=== PATIENT | male | born 1975 | race Caucasian/White ===

== ENCOUNTER 2018-04-07 12:55 | Emergency (ER) | payer MEDICARE, MEDICAID, SELFPAY ==
[2018-04-07 12:56] VITALS: BP 116/80; PULSE 101; RESP 16; TEMP 36.9; O2SAT 97; BMI 20.2
--- NOTE | 2018-04-07 13:46 | ED.DCSUM_ITS ---
- ER Visit Summary Date of Service: 04/07/18 Chief Complaint: Box with being spelled striking patient on the nose History of Present Illness: The patient is a 42 M who presents because of blunt injury to the nose. Parents state he complained the pain so they brought him here. He does have MRDD. There is no loss conscious. There is been no vomiting. He has no change in vision other than his blurry since his glasses broke. He has no difficulty breathing from his nose. There is no reported history of epistaxis. He has had no double vision or loss of vision. He presently has no complaints. Please read written note for complete detail Physical Examination: There is no swelling of the nose. There may be a small area of discoloration. There is no septal deviation hematoma. Pupils equal round reactive paradoxic muscle intact. There is no step-off with palpation infraorbital rim. Is no hyperesthesia and formal nerve. There is no evidence of entrapment. There is no subconjunctival hemorrhage noted. There is no loose dentition. He is able to open and close his mouth completely. Test Results: Parents were informed since there is no evidence of visible trauma and no deformity radiologic imaging is not indicated. Emergency Department Course and Treatment: Evaluation of blunt trauma in cognitively impaired person. Treatment Plan: Appropriate home-going instructions Disposition: discharge to home with parents Impression: Contusion nose secondary to blunt trauma initial encounter This note was generated with [employer] dictation software. It may contain incorrect words, spelling, and punctuation that were not noted in review of the chart prior to signing ED Disposition - Plan for ED Patient: Disposition: Home or Assisted Living Chief Complaint: Other, Pain/Inj Instructions: ED Contusion Nasal Referrals: Nicholas Collins MD [Primary Care Provider] - 1 Week if not improving
[2018-04-07 13:58] VITALS: PULSE 98; RESP 14; O2SAT 99
== END 2018-04-07 13:58 | disposition home or self-care (01) ==
LOC: ED 13:55
PROVIDERS: Emergency Provider Emergency Medicine; Family Provider Family Medicine; PCP Family Medicine
DX: S00.33XA Contusion of nose, initial encounter (principal); W22.8XXA Striking against or struck by other objects, initial encounter; Y93.9 Activity, unspecified; Y92.9 Unspecified place or not applicable; Y99.9 Unspecified external cause status; F79 Unspecified intellectual disabilities; J45.909 Unspecified asthma, uncomplicated
CPT/HCPCS: 99282

== ENCOUNTER 2018-09-22 04:20 | Emergency (ER) | payer MEDICARE, MEDICAID, SELFPAY ==
[2018-09-22 04:21] VITALS: BP 139/78; PULSE 95; RESP 24; TEMP 36.8; O2SAT 97; BMI 18.8
--- NOTE | 2018-09-22 04:33 | CT_ITS ---
STUDY: CT BRAIN WITHOUT CONTRAST REASON FOR EXAM: Male, 42 years old. Dizziness. RADIATION DOSAGE (If Supplied By Facility): CTDIvol = ( 44.99 ) mGy, DLP = ( 829.85 ) mGycm TECHNIQUE: Transaxial CT imaging of the brain was performed without administration of intravenous contrast material. Individualized dose optimization techniques were used for this CT. COMPARISON: None. FINDINGS: There is small left frontal subcutaneous hematoma. Normal calvarium. Normal size ventricles and extra-axial spaces for the patient's age. Normal white matter tracts of the cerebral hemispheres. Normal basal ganglia and thalami. Normal brainstem. Normal cerebellum. There is no intracranial hemorrhage. There are no findings of an acute ischemic infarction. Normal visualized paranasal sinuses. CT/Brain/Head without Contrast IMPRESSION: No intracranial hemorrhage. Electronically Signed: Luz Sy MD at 5:49 EDT Tel , Service support ,
--- NOTE | 2018-09-22 04:34 | RAD_ITS ---
STUDY: X-RAY CHEST REASON FOR EXAM: Male, 42 years old. Syncope TECHNIQUE: Frontal and lateral views of the chest. COMPARISON: None. FINDINGS: The lungs are clear and expanded. There is no demonstrated pleural abnormality. Normal size heart. Normal mediastinum and nicolle. Normal visualized pulmonary arteries. Normal visualized aortic arch and descending thoracic aorta. Normal visualized thoracic spine. Normal visualized ribs, clavicles, and shoulders. There is no demonstrated abnormality of the visualized soft tissue structures of the upper abdomen. RAD/Chest PA and Lateral IMPRESSION: Normal x-ray examination of the chest. Electronically Signed: Luz Sy MD at 5:15 EDT Tel , Service support ,
--- NOTE | 2018-09-22 04:34 | EKG12_ITS ---
Test Reason : DIZZINESS Blood Pressure : / mmHG Vent. Rate : 093 BPM Atrial Rate : 093 BPM P-R Int : 148 ms QRS Dur : 086 ms QT Int : 334 ms P-R-T Axes : 057 098 035 degrees QTc Int : 415 ms Normal sinus rhythm Right atrial enlargement Abnormal ECG Confirmed by CHEYANNE GREEN, SONY ([id number]), commissioning editor SHEILA RUBIN ([id number] on 09/24/2018 1:15:39 PM Referred By: HU Confirmed By:SONY EDWARD MD
[2018-09-22] MEDS: 0.9% Normal Saline 1,000 ML 1000 ML IV (04:43)
[2018-09-22 04:44] VITALS: BP 124/72; BP 129/76; BP 141/73; PULSE 105; PULSE 115; PULSE 98
[2018-09-22 04:57] LABS: Absolute Lymphocyte Count 0.39 X10^3/ul (0.83-4.51); Absolute Neutrophil Count 10.6 X10^3/uL (2.0-7.7); Basophil# 0.02 X10^3/uL; Basophil% 0.2 % (0-1); Eosinophil# 0.95 X10^3/uL; Eosinophils% 7.6 % (0-5); Hematocrit 43.4 % (40-54); Hemoglobin 15.1 g/dl (13.0-16.5); Lymphocyte # 0.39 X10^3/ul (4.0); Lymphocyte % 3.1 % (19-41); Mean Corp Hgb Conc 34.8 g/gl (32-36); Mean Corpuscular Hgb 29.6 pg (27.0-32.0); Mean Corpuscular Volume 85.1 fL (80-94); Mean Platelet Vol. 10.1 fl (6.2-12.0); Monocyte# 0.57 X10^3/uL; Monocyte% 4.5 % (0-10); Neutrophil # 10.59 X10^3/uL (2.7-7.7); Neutrophil % 84.3 % (47-70); Platelet Count 220 K/mm3 (150-450); RBC Distribution Width CV 13.1 % (11.6-14.6); RBC Distribution Width SD 40.3 fl (35.1-43.9); White Blood Count 12.6 K/mm3 (4.4-11.0)
[2018-09-22 04:59] LABS: Differential Indicated SCAN CRITERIA MET; POSITIVE COUNT NO; POSITIVE DIFFERENTIAL YES; POSITIVE MORPHOLOGY NO
[2018-09-22 05:08] LABS: Anion Gap 9 (5-15); BUN 12 mg/dL (7-18); BUN/Creat Ratio 14.3 RATIO (10-20); Calcium,Total 8.6 mg/dL (8.5-10.1); Chloride 105 mmol/L (98-107); Creatinine, Serum 0.84 mg/dL (0.70-1.30); EST Glomerular Filtration Rate 106 mL/min (>60); Est Glom Filt Rate - Afr Amer 129 mL/min (>60); Estimated Creatinine Clearance 100.01 ml/min; Glucose 136 mg/dL (74-106); Potassium 3.5 mmol/L (3.5-5.1); Sodium Level 142 mmol/L (136-145)
[2018-09-22 05:21] LABS: Differential Comment SCANNED
--- NOTE | 2018-09-22 05:26 | ED.DEP ---
ED Disposition - Plan for ED Patient: Chief Complaint: Dizziness Instructions: ED Fainting Unkn Cause Referrals: Nicholas Collins MD [Primary Care Provider] -
--- NOTE | 2018-09-22 05:55 | ED.VISSUMM ---
- ER Visit Summary Date of Service: 09/22/18 Chief Complaint: Syncope History of Present Illness: The patient is a 42 M who presents after a syncopal episode. He had gotten up and felt dizzy. He then lost consciousness and fell forward. Family heard a thump shortly before presentation here to the emergency department. He complains of some aching in the bilateral legs. He also complains of a headache. He denies any recent illness. No fever chest pain shortness of breath nausea vomiting diarrhea abdominal pain. He denies any other injuries. Physical Examination: Afebrile respiratory rate 24 vitals otherwise normal Neck nontender Atraumatic normocephalic she had any lacerations contusions abrasions or hematomas GCS of 18 with no focal or lateralizing neurological deficits Heart is regular rate and rhythm Lungs are clear Abdomen soft Active full range of motion x4 extremities, nontender Test Results: EKG shows sinus rhythm at a rate of 93. Orthostatic vital signs are negative. Labs are notable for white blood cell count 12.6. Troponin negative. Chest x-ray is normal. CT the head shows no intracranial hemorrhage. Emergency Department Course and Treatment: Patient was treated with IV fluids. He is resting comfortably no distress. He will be discharged to follow-up as an outpatient. Family understands to return for new or worsening symptoms and were instructed on specific signs and symptoms to monitor for. Treatment Plan: [] Disposition: Discharge Impression: Syncope Closed head injury This note was generated with [employer] dictation software. It may contain incorrect words, spelling, and punctuation that were not noted in review of the chart prior to signing ED Disposition - Plan for ED Patient: Chief Complaint: Dizziness Instructions: ED Fainting Unkn Cause Referrals: Nicholas Collins MD [Primary Care Provider] -
[2018-09-22 06:03] VITALS: BP 129/65; PULSE 102; RESP 18; O2SAT 99
== END 2018-09-22 06:04 | disposition home or self-care (01) ==
LOC: ED 04:50
PROVIDERS: Emergency Provider Emergency Medicine; Family Provider Family Medicine; PCP Family Medicine
DX: R55 Syncope and collapse (principal); S09.90XA Unspecified injury of head, initial encounter; X58.XXXA Exposure to other specified factors, initial encounter; Y93.9 Activity, unspecified; Y92.9 Unspecified place or not applicable; Y99.9 Unspecified external cause status; Q85.00 Neurofibromatosis, unspecified
CPT/HCPCS: 70450; 71046; 80048; 84484; 85025; 93005; 96360; 99285; J7030; A4216

== ENCOUNTER → 2018-10-18 06:37 | Outpatient (CLI) | payer MEDICARE, MEDICAID, SELFPAY ==
--- NOTE | 2018-10-19 13:08 | EEG ---
- Electroencephalogram Date of service 10/18/2018 History EEG is being done in this 43 yr M to rule out seizures EEG Description: This is an 18 channel EEG with 10-20 lead placement system. Bipolar montages, Referential and Circumferential montages were reviewed. Photic stimulation and Hyperventilation were performed. The posterior dominant rhythm is 7 HZ synchronous, symmetric, reacting to eye opening and closing. Photo stimulation elicited normal driving response but no abnormal photoparoxysmal response, Hyperventilation did not elicit any abnormal photoparoxysmal response. Sleep was identified. There is mild abnormal background slowing in the theta frequency range noted during the record. There was no epileptiform discharges or electrographic seizures noted during this recording. Muscle artefact identified throughout the record EEG Interpretation This is an abnormal EEG due to the presence of mild generalized slowing. This may be seen in generalized cerebral dysfunction like metabolic/toxic encephalopathy. Clinical correlation is advised. There is no epileptiform discharges or electrographic seizures noted during the record.
== END ==
PROVIDERS: Family Provider Family Medicine; PCP Family Medicine; Referring Provider Family Medicine; Visit Provider Family Medicine
DX: R55 Syncope and collapse (principal); Q85.00 Neurofibromatosis, unspecified

== ENCOUNTER 2018-10-19 18:09 | Observation (INO) | payer MEDICARE, MEDICAID, SELFPAY ==
[2018-10-19 18:10] VITALS: BP 143/78; PULSE 75; RESP 18; TEMP 36.7; O2SAT 99; BMI 19.1
[2018-10-19 20:02] VITALS: BP 133/85; PULSE 65; RESP 17; O2SAT 99
--- NOTE | 2018-10-19 20:50 | RAD_ITS ---
STUDY: X-RAY - ABDOMEN/PELVIS REASON FOR EXAM: Male, 43 years old. Constipation. Blood in stool. TECHNIQUE: KUB. COMPARISON: None. FINDINGS: There is a nonobstructive bowel gas pattern. There is a large stool burden. No organomegaly. No abnormal calcifications. Normal soft tissue structures. Normal visualized osseous structures. RAD/Abdomen Single View IMPRESSION: Large stool burden consistent with constipation. Otherwise unremarkable study. Electronically Signed: Idania Senior MD at 21:15 EST Tel , Service support ,
[2018-10-19 21:56] LABS: Absolute Lymphocyte Count 1.41 X10^3/ul (0.83-4.51); Absolute Neutrophil Count 3.9 X10^3/uL (2.0-7.7); Basophil# 0.05 X10^3/uL; Basophil% 0.8 % (0-1); Eosinophil# 0.32 X10^3/uL; Hematocrit 41.4 % (40-54); Hemoglobin 13.7 g/dl (13.0-16.5); Lymphocyte # 1.41 X10^3/ul (4.0); Mean Corp Hgb Conc 33.1 g/gl (32-36); Mean Corpuscular Volume 87.5 fL (80-94); Mean Platelet Vol. 10.1 fl (6.2-12.0); Monocyte# 0.74 X10^3/uL; Monocyte% 11.5 % (0-10); Neutrophil # 3.88 X10^3/uL (2.7-7.7); Neutrophil % 60.5 % (47-70); Platelet Count 224 K/mm3 (150-450); RBC Distribution Width CV 13.1 % (11.6-14.6); Red Blood Count 4.73 M/mm3 (4.6-6.2); White Blood Count 6.4 K/mm3 (4.4-11.0)
[2018-10-19 22:03] LABS: POSITIVE COUNT NO; POSITIVE DIFFERENTIAL NO; POSITIVE MORPHOLOGY NO
[2018-10-19 22:07] LABS: Anion Gap 3 (5-15); BUN 17 mg/dL (7-18); Calcium,Total 8.9 mg/dL (8.5-10.1); Chloride 104 mmol/L (98-107); Creatinine, Serum 0.77 mg/dL (0.70-1.30); EST Glomerular Filtration Rate 117 mL/min (>60); Est Glom Filt Rate - Afr Amer 142 mL/min (>60); Glucose 105 mg/dL (74-106); Sodium Level 139 mmol/L (136-145)
[2018-10-19 22:21] LABS: International Normalized Ratio 1.1; Prothrombin Time (Protime)PT. 13.7 SECONDS (11.7-14.9)
[2018-10-19 22:24] VITALS: BP 127/80; PULSE 75; RESP 18; O2SAT 97
--- NOTE | 2018-10-19 23:42 | HP.PCM_ITS ---
Problem List (1) GI bleed Status: Acute Qualifiers: GI bleed type/associated pathology: unspecified gastrointestinal hemorrhage type Qualified Code(s): K92.2 - Gastrointestinal hemorrhage, unspecified (2) Constipation Status: Acute Qualifiers: Constipation type: unspecified constipation type Qualified Code(s): K59.00 - Constipation, unspecified (3) MRDD Status: Chronic (4) Neurofibromatosis Status: Chronic (5) Asthma Status: Chronic Qualifiers: Asthma severity: unspecified severity Asthma persistence: unspecified Asthma complication type: unspecified Qualified Code(s): J45.909 - Unspecified asthma, uncomplicated History of Present Illness Date of Admission: 10/19/18 Chief Complaint: Constipation x 3 days, dark red blood onset on day of presentation. The patient is a 43 y/o M w/ PMHx: Asthma, Neurofibromatosis Unclear Type, MRDD who presents to the [facility] ED on 10/19/18 with history of onset constipation without marked abdominal discomfort, distention x 3 days with onset dark red blood on the evening of ED presentation with small bowel movement attempts. In the ED patient administered enema and was noted to have BM x 3 while in the ED and eventually had liquid dark red blood noted to be a considerable amount. In the ED work-up included T 98, heart rate 75, BP 127/80, respiratory rate 18, 99% on room air, CBC with WBC 6.4, hemoglobin 13.7, platelet 224 without market shift, unremarkable coags, BMP unremarkable, KUB with large stool burden consistent with constipation otherwise unremarkable. Past Medical History Past Medical History (Chronic Problems): Chronic Problems MRDD (Chronic) Neurofibromatosis (Chronic) Asthma (Chronic) Allergies No Known Allergies Allergy (Verified 10/19/18 18:11) Home Medications: Ambulatory Orders Medication Instructions Recorded Albuterol Inhaler [Ventolin Hfa] 1 - 2 puff INHALATION Q4H PRN PRN 06/21/14 Albuterol Aerosols [Ventolin 2.5 mg INHALATION Q6H PRN PRN 10/19/18 Aerosols] Fluticasone 0.05% [Flonase Nasal 2 spray NASAL DAILY 10/19/18 [place]] Fluticasone 44 Mcg [Flovent (SP)] 2 puff INHALATION BID 10/19/18 Olopatadine HCl [Patanol] 2 drop EACH EYE DAILY 10/19/18 Surgical History: - - Patient has had skin tumor resections. Psychiatric History: No pertinent psych hx Lives: With Family - Patient lives with his mother and father. Smoking Status: Never smoker Alcohol: None Drugs: None - *Family History Maternal History Items: - - Patient with maternal and paternal family history of heart disease, hypertension, diabetes and cancer. Paternal History Items: - - Patient with maternal and paternal family history of heart disease, hypertension, diabetes and cancer. Review of Systems Constitutional: Denies: Chills, Fever, Weight Change HEENT: Denies: Head Aches, Sinus Congestion, Sinus Drainage Cardiovascular: Denies: Chest Pain, Palpitations Respiratory: Denies: Cough, Shortness of breath at rest, Sputum production Gastrointestinal: Reports: Constipation, - - Dark red liquid blood.. Denies: A bdominal Pain, Nausea, Vomiting Genitourinary: Denies: Dysuria Musculoskeletal: Denies: Joint Pain, Joint Tenderness Skin: Reports: Skin Changes. Denies: Rash, Wounds Neurological: Denies: Numbness, Tingling, Focal weakness Psychiatric: Denies: Anxiety, Depression, Homicidal Ideations, Suicidal Ideations Hematologic/ Lymphatic: Denies: Easy Bruising, Easy Bleeding VTE Information - Inpt Only VTE Present on Admission: No VTE Mechan Device Prophylaxis: SCD's VTE Pharm Prophylaxis ordered?: No Reason prophylaxis not ordered:: Medical Contraindication Patient Problems: Active and Suspected Problems GI bleed (Acute) Constipation (Acute) Subjective: Seated upright in ED bed, no acute distress. Objective: Physical Examination: General: awake, alert, oriented x 3 and cooperative, seated upright in the ED bed in no apparent distress. Skin: normal color, turgor, no icterus, cyanosis, evidence neurofibromatosis lesions to the bilateral upper extremities primarily. HEENT: AT/NC, EOMI, PERRLA, MMM, no carotid bruits or JVD noted. Lungs: CTA bilaterally, moderate effort, mild decrease BL bases, no rales, ronchi or wheezing. Heart: Regular rate and rhythm; no gallop, rub audible. Abdomen: soft, thin habitus, NTTP, ND, decreased BS, no HSM. Extremities: no cyanosis, clubbing, or edema. Neurological: patient awake, alert, oriented x 3; cognitive function intact; pupils equally reactive to light and accomodation; cranial nerves II-XII grossly normal, moving all 4 extremities, no focal deficits, strength preserved. Psychiatric: affect appears normal, no acute evidence of depressive or anxiety feelings. - Physical Exam Vital Signs Temp Pulse Resp BP Pulse Ox 98.0 F 75 18 127/80 H 97 10/19/18 18:10 10/19/18 22:24 10/19/18 22:24 10/19/18 22:24 10/19/18 22:24 Oxygen Delivery Method Room Air Weight: 136 lb 10.986 oz Body Mass Index (BMI) 19.1 Laboratory Tests Past 24 Hrs 10/19/18 10/19/18 10/19/18 21:45 21:45 21:45 WBC 6.4 RBC 4.73 Hgb 13.7 Hct 41.4 MCV 87.5 MCH 29.0 MCHC 33.1 RDW 13.1 RDW Differential 42.0 Plt Count 224 MPV 10.1 Immature Gran % (Auto) 0.200 Neut % (Auto) 60.5 Lymph % (Auto) 22.0 [place] % (Auto) 11.5 H Eos % (Auto) 5.0 Baso % (Auto) 0.8 Absolute Neuts (auto) 3.9 Absolute Lymphs (auto) 1.41 Total Counted Not Reportable PT 13.7 INR 1.1 APTT 30.0 Sodium 139 Potassium 4.0 Chloride 104 Carbon Dioxide 32.0 Anion Gap 3 L BUN 17 Creatinine 0.77 Estim Creat Clear Calc 109.60 Est GFR (MDRD) Af Amer 142 Est GFR (MDRD) Non-Af 117 BUN/Creatinine Ratio 22.0 H Glucose 105 Calcium 8.9 Assessment/Plan All Active Problems GI bleed (Acute) Constipation (Acute) The patient is a 43 y/o M w/ PMHx: Asthma, Neurofibromatosis Unclear Type, MRDD who presents to the [facility] ED on 10/19/18 with history of onset constipation without marked abdominal discomfort, distention x 3 days with onset dark red blood on the evening of ED presentation with small bowel movement attempts. (1) Acute Constipation w/ ? Associated GI Bleed, possible Diverticular versus Hemorrhoidal, Unclear Specific Etiology: Admission Hgb 13.7, notable liquid blood output dark red appearance after enema--->BM x 3, will admit to [facility], maintain on IVFs, obtain serial H+H q 6 hours, maintain on IV PPI. Dr. Young consulted, pending. Lactulose x 1 administered in addition to noted enema. Allow clears until Surgery evaluation. (2) Chronic Asthma: ATC duonebs, PRN albuterol, HOB, IS parameters. (3) Neurofibromatosis: Unclear Type, parents noted lesion removal from scalp prior. (4) MRDD: Mild to moderate, lives with his parents, does have a job at [employer] he notes. (5) DVT prophylaxis: SCDs, defer chemoprophylaxis given acute presentation #1. Code Visit OBSV E&M: [id number] Initial observation care L3
--- NOTE | 2018-10-20 00:03 | ED.VISSUMM ---
- ER Visit Summary Date of Service: 10/20/18 Chief Complaint: Constipation History of Present Illness: The patient is a 43 M presenting with constipation. He states this started 3 days ago. He has been unable to have bowel movement. He has tried stool softener without improvement. Today he noticed blood per rectum without stool. He denies abdominal pain. Denies nausea vomiting. Denies other complaints. Physical Examination: Vitals are stable. Patient is afebrile. Alert no acute distress. HEENT exam is unremarkable. Neck is supple. Lungs are clear and equal bilaterally. Heart is regular rate and rhythm. Abdomen is soft nontender nondistended. No guarding or rebound Rectal: no impaction Extremities are unremarkable. Skin is warm and dry. Remainder of exam is unremarkable. Emergency Department Course and Treatment: KUB shows large stool burden consistent with constipation. He is given a soapsuds enema. He was able to have a bowel movement. This was followed by a large amount of blood. CBC, chemistries unremarkable. Due to GI bleed, discussed with hospitalist for observation. Disposition: Observation Impression: Constipation, GI bleed This note was generated with [employer] dictation software. It may contain incorrect words, spelling, and punctuation that were not noted in review of the chart prior to signing ED Disposition - Plan for ED Patient: Chief Complaint: Constipation
--- NOTE | 2018-10-20 00:07 | ED.DCSUM_ITS ---
- ER Visit Summary Date of Service: 10/20/18 Chief Complaint: Constipation History of Present Illness: The patient is a 43 M presenting with constipation. He states this started 3 days ago. He has been unable to have bowel movement. He has tried stool softener without improvement. Today he noticed blood per rectum without stool. He denies abdominal pain. Denies nausea vomiting. Denies other complaints. Physical Examination: Vitals are stable. Patient is afebrile. Alert no acute distress. HEENT exam is unremarkable. Neck is supple. Lungs are clear and equal bilaterally. Heart is regular rate and rhythm. Abdomen is soft nontender nondistended. No guarding or rebound Rectal: no impaction Extremities are unremarkable. Skin is warm and dry. Remainder of exam is unremarkable. Emergency Department Course and Treatment: KUB shows large stool burden consistent with constipation. He is given a soapsuds enema. He was able to have a bowel movement. This was followed by a large amount of blood. CBC, chemistries unremarkable. Due to GI bleed, discussed with hospitalist for observation. Disposition: Observation Impression: Constipation, GI bleed This note was generated with [employer] dictation software. It may contain incorrect words, spelling, and punctuation that were not noted in review of the chart prior to signing ED Disposition - Plan for ED Patient: Chief Complaint: Constipation
[2018-10-20 00:45] VITALS: BMI 18.4
[2018-10-20 01:00] VITALS: BP 129/72; PULSE 81; RESP 16; TEMP 36.6; O2SAT 97
[2018-10-20] MEDS: 0.9% Normal Saline 1,000 ML 125 ML IV ×2 (01:15→09:48)
[2018-10-20] MEDS: Lactulose 20 GM/30 ML UDC PO (01:20)
[2018-10-20 01:29] LABS: Hemoglobin 14.8 g/dl (13.0-16.5)
[2018-10-20 05:50] VITALS: BP 108/60; PULSE 73; RESP 16; TEMP 36.3; O2SAT 96
[2018-10-20 06:07] LABS: Hematocrit 38.3 % (40-54); Hemoglobin 12.8 g/dl (13.0-16.5); Mean Corp Hgb Conc 33.4 g/gl (32-36); Mean Corpuscular Hgb 29.1 pg (27.0-32.0); Mean Platelet Vol. 10.3 fl (6.2-12.0); Platelet Count 227 K/mm3 (150-450); RBC Distribution Width SD 40.2 fl (35.1-43.9); White Blood Count 6.3 K/mm3 (4.4-11.0)
[2018-10-20 06:08] LABS: Scan Indicated on CBC? Y/N NO
[2018-10-20 06:40] LABS: Anion Gap 9 (5-15); BUN 13 mg/dL (7-18); BUN/Creat Ratio 19.6 RATIO (10-20); Calcium,Total 8.5 mg/dL (8.5-10.1); Chloride 107 mmol/L (98-107); Creatinine, Serum 0.66 mg/dL (0.70-1.30); EST Glomerular Filtration Rate 140 mL/min (>60); Est Glom Filt Rate - Afr Amer 169 mL/min (>60); Estimated Creatinine Clearance 123.74 ml/min; Glucose 81 mg/dL (74-106); Potassium 3.8 mmol/L (3.5-5.1); Sodium Level 142 mmol/L (136-145)
[2018-10-20 07:26] VITALS: PULSE 79; RESP 16; O2SAT 98
[2018-10-20] MEDS: Ipratropium/Albuterol Sulfate 3 ML AMPUL.NEB INHALATION (07:26)
[2018-10-20] MEDS: Acetaminophen 325 MG Tablet 650 MG PO (08:39)
[2018-10-20 08:40] VITALS: BP 119/71; PULSE 77; RESP 16; TEMP 36.7; O2SAT 97
[2018-10-20] MEDS: Polyethylene Glycol 3350 17 GM PACKET PO (10:14)
--- NOTE | 2018-10-20 10:55 | PCM.DC ---
- Discharge Diagnoses Current Active Problems: Current Active and Chronic Problems GI bleed (Acute) Constipation (Acute) MRDD (Chronic) Neurofibromatosis (Chronic) Asthma (Chronic) You will use the following diet at home:: No restrictions Your food should be the consistency of: Regular Discharge Activity: Return to Normal Activity Allergies/Adverse Reactions: Allergies No Known Allergies Allergy (Verified 10/19/18 18:11) Medications to take at Discharge Albuterol Inhaler [Ventolin Hfa] 1 - 2 puff INHALATION Q4H PRN PRN 06/21/14 Albuterol Aerosols [Ventolin Aerosols] 2.5 mg INHALATION Q6H PRN PRN 10/19/18 Fluticasone 0.05% [Flonase Nasal [place]] 2 spray NASAL DAILY 10/19/18 Fluticasone 44 Mcg [Flovent 44 Mcg] 2 puff INHALATION BID 10/19/18 Olopatadine HCl [Patanol] 2 drop EACH EYE DAILY 10/19/18 Cetirizine HCl [Zyrtec] 10 mg PO 10/20/18 Polyethylene Glycol 3350 [Miralax] 17 gm PO TID #21 packet 10/20/18 The following prescriptions were given: Polyethylene Glycol 3350 [Miralax] 17 gm PO TID #21 packet Primary Care Physician: Nicholas Collins MD [Primary Care Provider] - Please follow up with your Primary Care Physician in: 1-2 weeks Test Results: Test results from this visit will be discussed in further detail at your follow-up appointment, if applicable. Please Follow Up With: Frantz Young MD - Time: 9:00AM When: 10/25/2018 Proposed Discharge Date: 10/20/18
--- NOTE | 2018-10-20 13:00 | PCM.DC.SUM ---
<Isak Valencia - Last Filed: 10/20/18 13:00> Discharge Date and Diagnosis Date of Admission: 10/19/18 Date of Discharge: 10/20/18 - Primary Discharge Diagnosis Constipation blood tingled stool 2/2 constipation MRDD Neurofibromatosis Asthma - Secondary Discharge Diagnosis Chronic Problems MRDD (Chronic) Neurofibromatosis (Chronic) Asthma (Chronic) Hospital Course and Treatment Imaging Results: RAD/Abdomen Single View IMPRESSION: Large stool burden consistent with constipation. Otherwise unremarkable study. Consults: Hannah - gen surg. Operations: None Procedures: None Summary of Care Provided: Hospital Course: The patient is a 43 year old M with pmhx of MRDD, asthma, neurofibromatosis, who presents to the ER with c/o dark red blood in stool, severe constipation, abdominal distention, no abdominal pain. KUB demonstrated significant constipation. Blood occurred while pt was attempting to move bowels. Hgb was stable in the ER. He was admitted to PCU and gen surgery was consulted. Gen surgery recommended miralax TID until outpatient follow up which is scheduled at his office Thursday at 0900. At that point a colonoscopy will be considered. Hgb had non significant decrease from 13.7 to 12.8 overnight. The patient had no further complaints. He was discharged home with directions as above, also follow up with PCP in 1-2 weeks. This patient was seen by Isak Valencia PA-C under the supervision of Dr. Brown.[] - Physical Exam General: Alert, Oriented x3, Cooperative HEENT: Atraumatic, PERRLA, EOMI, Normocephalic Neck: Supple, No JVD, Negative Carotid Bruits Lungs: Clear to auscultation, Normal air movement Cardiovascular: Regular rate, No murmurs Abdomen: Bowel Sounds Present, Soft, Non Tender Extremities: No edema, Capillary Refill Less than 3 Seconds Skin: No rashes, No breakdown Musculoskeletal: No Tenderness to Palpation of Joints or Extremities Neurological: Cranial nerves II-XII grossly intact Psych/Mental Status: Normal Affect, Appropriate Vital Signs Temp Pulse Resp BP Pulse Ox 98.0 F 77 16 119/71 97 10/20/18 08:40 10/20/18 08:40 10/20/18 08:40 10/20/18 08:40 11/21/18 08:40 Oxygen Delivery Method Room Air Weight: 132 lb 4.438 oz Body Mass Index (BMI) 18.4 Intake and Output for Last 24 Hours 10/18/18 10/19/18 10/20/18 23:59 23:59 23:59 Intake Total 632 / 632 Balance 632 / 632 Laboratory Tests Past 24 Hrs 10/19/18 10/19/18 10/19/18 21:45 21:45 21:45 WBC 6.4 RBC 4.73 Hgb 13.7 Hct 41.4 MCV 87.5 MCH 29.0 MCHC 33.1 RDW 13.1 RDW Differential 42.0 Plt Count 224 MPV 10.1 Immature Gran % (Auto) 0.200 Neut % (Auto) 60.5 Lymph % (Auto) 22.0 [place] % (Auto) 11.5 H Eos % (Auto) 5.0 Baso % (Auto) 0.8 Absolute Neuts (auto) 3.9 Absolute Lymphs (auto) 1.41 Total Counted Not Reportable PT 13.7 INR 1.1 APTT 30.0 Sodium 139 Potassium 4.0 Chloride 104 Carbon Dioxide 32.0 Anion Gap 3 L BUN 17 Creatinine 0.77 Estim Creat Clear Calc 109.60 Est GFR (MDRD) Af Amer 142 Est GFR (MDRD) Non-Af 117 BUN/Creatinine Ratio 22.0 H Glucose 105 Calcium 8.9 10/20/18 10/20/18 10/20/18 01:03 04:55 04:55 WBC 6.3 RBC 4.40 L Hgb 14.8 12.8 L Hct 43.0 38.3 L MCV 87.0 MCH 29.1 MCHC 33.4 RDW 13.0 RDW Differential 40.2 Plt Count 227 MPV 10.3 Immature Gran % (Auto) Neut % (Auto) Lymph % (Auto) [place] % (Auto) Eos % (Auto) Baso % (Auto) Absolute Neuts (auto) Absolute Lymphs (auto) Total Counted PT INR APTT Sodium 142 Potassium 3.8 Chloride 107 Carbon Dioxide 26.0 Anion Gap 9 BUN 13 Creatinine 0.66 L Estim Creat Clear Calc 123.74 Est GFR (MDRD) Af Amer 169 Est GFR (MDRD) Non-Af 140 BUN/Creatinine Ratio 19.6 Glucose 81 Calcium 8.5 Discharge Diet: No Restrictions Discharge Activity: Return to Normal Activity Home Medications: Medications to take at Discharge Albuterol Inhaler [Ventolin Hfa] 1 - 2 puff INHALATION Q4H PRN PRN 06/21/14 Albuterol Aerosols [Ventolin Aerosols] 2.5 mg INHALATION Q6H PRN PRN 10/19/18 Fluticasone 0.05% [Flonase Nasal [place]] 2 spray NASAL DAILY 10/19/18 Fluticasone 44 Mcg [Flovent 44 Mcg] 2 puff INHALATION BID 10/19/18 Olopatadine HCl [Patanol] 2 drop EACH EYE DAILY 10/19/18 Cetirizine HCl [Zyrtec] 10 mg PO 10/20/18 Polyethylene Glycol 3350 [Miralax] 17 gm PO TID #21 packet 10/20/18 Following Prescrptions Were Given to Patient: Polyethylene Glycol 3350 [Miralax] 17 gm PO TID #21 packet Primary Care Physician: Nicholas Collins MD [Primary Care Provider] - Please follow up with your Primary Care Physician in: 1-2 weeks Please Follow Up With: Frantz Young MD - Time: 9:00AM When: 10/25/2018 Disposition: Home Minutes spent on discharge:: 35 Patient Condition:: Stable Medical Necessity - Tobacco Use Smoking Status: Never smoker Meaningful Use Info Meaningful Use Diagnoses (Choose all that apply): None applicable <Darian Brown - Last Filed: 10/20/18 13:23> Discharge Date and Diagnosis - Secondary Discharge Diagnosis Chronic Problems MRDD (Chronic) Neurofibromatosis (Chronic) Asthma (Chronic) Hospital Course and Treatment Summary of Care Provided: This patient was seen in conjunction with Isak Valencia PA-C . I have independently interviewed and examined the patient and reviewed pertinent historical, laboratory, and other data. Please refer to Isak Valencia PA-C note for details of this patient's presentation, findings, and recommendations. I have reviewed Isak Valencia PA-C note and concur with documented findings. In brief, the patient is a 43 year old M with mild MRDD who presented with abdominal pain constipation and some bleeding per rectum. Patient was admitted to a monitored bed monitored H&H was did remain stable. Consultation was placed to Dr. Concepcion with general surgery plan is for patient to undergo colonoscopy as outpatient to be arranged by him Hospital course: As documented above - Physical Exam Vital Signs Temp Pulse Resp BP Pulse Ox 98.0 F 77 16 119/71 97 10/20/18 08:40 10/20/18 08:40 10/20/18 08:40 10/20/18 08:40 10/20/18 08:40 Oxygen Delivery Method Room Air Weight: 60 kg Body Mass Index (BMI) 18.4 Intake and Output for Last 24 Hours 10/18/18 10/19/18 10/20/18 23:59 23:59 23:59 Intake Total 632 / 632 Balance 632 / 632 Laboratory Tests Past 24 Hrs 10/19/18 10/19/18 10/19/18 21:45 21:45 21:45 WBC 6.4 RBC 4.73 Hgb 13.7 Hct 41.4 MCV 87.5 MCH 29.0 MCHC 33.1 RDW 13.1 RDW Differential 42.0 Plt Count 224 MPV 10.1 Immature Gran % (Auto) 0.200 Neut % (Auto) 60.5 Lymph % (Auto) 22.0 [place] % (Auto) 11.5 H Eos % (Auto) 5.0 Baso % (Auto) 0.8 Absolute Neuts (auto) 3.9 Absolute Lymphs (auto) 1.41 Total Counted Not Reportable PT 13.7 INR 1.1 APTT 30.0 Sodium 139 Potassium 4.0 Chloride 104 Carbon Dioxide 32.0 Anion Gap 3 L BUN 17 Creatinine 0.77 Estim Creat Clear Calc 109.60 Est GFR (MDRD) Af Amer 142 Est GFR (MDRD) Non-Af 117 BUN/Creatinine Ratio 22.0 H Glucose 105 Calcium 8.9 10/20/18 10/20/18 10/20/18 01:03 04:55 04:55 WBC 6.3 RBC 4.40 L Hgb 14.8 12.8 L Hct 43.0 38.3 L MCV 87.0 MCH 29.1 MCHC 33.4 RDW 13.0 RDW Differential 40.2 Plt Count 227 MPV 10.3 Immature Gran % (Auto) Neut % (Auto) Lymph % (Auto) [place] % (Auto) Eos % (Auto) Baso % (Auto) Absolute Neuts (auto) Absolute Lymphs (auto) Total Counted PT INR APTT Sodium 142 Potassium 3.8 Chloride 107 Carbon Dioxide 26.0 Anion Gap 9 BUN 13 Creatinine 0.66 L Estim Creat Clear Calc 123.74 Est GFR (MDRD) Af Amer 169 Est GFR (MDRD) Non-Af 140 BUN/Creatinine Ratio 19.6 Glucose 81 Calcium 8.5 Code Visit OBSV E&M: 72739 Observation care discharge
--- NOTE | 2018-10-20 15:59 | PCM.CONS.GEN ---
Reason for Consult Date of Consultation: 10/20/18 Reason for Consultation: constipation History of Present Illness: The patient is a 43 year old M as a long-standing history of constipation issues. He takes daep-coi-njlgkzh laxatives not infrequently. He states he eats a high-fiber diet and drinks non-caffeinated beverages more so than he used to. He notes he has not had a bowel movement for 3 days prior to admission or presentation to emergency department. In the emergency department, he had a abdominal x-ray which demonstrated significant fecal loading with stool to the cecum and harder stool balls apparently down in the rectosigmoid area without gross colonic distention. Aside from constipation, he notes no issues of abdominal pain. He notes no upper GI complaints. He has not had previous colonoscopy. The patient in normal laboratory studies. We'll attempt to give him an enema after that he noted or they noted blood per rectum. I was consult for constipation likely blood per rectum. The patient's hemoglobin has remained stable Past Medical History Past Medical History (Chronic Problems): Chronic Problems MRDD (Chronic) Neurofibromatosis (Chronic) Asthma (Chronic) Allergies No Known Allergies Allergy (Verified 10/19/18 18:11) Home Medications: Ambulatory Orders Medication Instructions Recorded Albuterol Inhaler [Ventolin Hfa] 1 - 2 puff INHALATION Q4H PRN PRN 06/21/14 Albuterol Aerosols [Ventolin 2.5 mg INHALATION Q6H PRN PRN 10/19/18 Aerosols] Fluticasone 0.05% [Flonase Nasal 2 spray NASAL DAILY 10/19/18 [place]] Fluticasone 44 Mcg [Flovent 44 Mcg] 2 puff INHALATION BID 10/19/18 Olopatadine HCl [Patanol] 2 drop EACH EYE DAILY 10/19/18 Cetirizine HCl [Zyrtec] 10 mg PO 10/20/18 Polyethylene Glycol 3350 [Miralax] 17 gm PO TID #21 packet 10/20/18 Surgical History: - - Patient has had skin tumor resections. Psychiatric History: No pertinent psych hx Lives: With Family - Patient lives with his mother and father. Smoking Status: Never smoker Alcohol: None Drugs: None - *Family History Maternal History Items: - - Patient with maternal and paternal family history of heart disease, hypertension, diabetes and cancer. Paternal History Items: - - Patient with maternal and paternal family history of heart disease, hypertension, diabetes and cancer. Review of Systems Constitutional: Denies: Chills, Fever, Weight Change HEENT: Denies: Head Aches, Sinus Congestion, Sinus Drainage Cardiovascular: Denies: Chest Pain, Palpitations Respiratory: Denies: Cough, Shortness of breath at rest, Sputum production Gastrointestinal: Reports: Constipation, Hematochezia. Denies: Abdominal Pain, Nausea, Vomiting Genitourinary: Denies: Dysuria Musculoskeletal: Denies: Joint Pain, Joint Tenderness Skin: Denies: Rash, Wounds Neurological: Denies: Numbness, Tingling, Focal weakness Psychiatric: Denies: Anxiety, Depression, Homicidal Ideations, Suicidal Ideations Hematologic/ Lymphatic: Denies: Easy Bruising, Easy Bleeding - Physical Exam General: Alert, Oriented x3, Cooperative HEENT: Atraumatic, PERRLA, EOMI, Normocephalic Neck: Supple, No JVD, Negative Carotid Bruits Lungs: Clear to auscultation, Normal air movement Cardiovascular: Regular rate, No murmurs Abdomen: Bowel Sounds Present, Soft, Non Tender Extremities: No edema, Capillary Refill Less than 3 Seconds Skin: No rashes, No breakdown Musculoskeletal: No Tenderness to Palpation of Joints or Extremities Neurological: Cranial nerves II-XII grossly intact Psych/Mental Status: Normal Affect, Appropriate Vital Signs Temp Pulse Resp BP Pulse Ox 98.0 F 77 16 119/71 97 10/20/18 08:40 10/20/18 08:40 10/20/18 08:40 10/20/18 08:40 10/20/18 08:40 Oxygen Delivery Method Room Air Weight: 60 kg Body Mass Index (BMI) 18.4 Intake and Output for Last 24 Hours 10/18/18 10/19/18 10/20/18 23:59 23:59 23:59 Intake Total 632 / 632 Balance 632 / 632 Laboratory Tests Past 24 Hrs 10/19/18 10/19/18 10/19/18 21:45 21:45 21:45 WBC 6.4 RBC 4.73 Hgb 13.7 Hct 41.4 MCV 87.5 MCH 29.0 MCHC 33.1 RDW 13.1 RDW Differential 42.0 Plt Count 224 MPV 10.1 Immature Gran % (Auto) 0.200 Neut % (Auto) 60.5 Lymph % (Auto) 22.0 [place] % (Auto) 11.5 H Eos % (Auto) 5.0 Baso % (Auto) 0.8 Absolute Neuts (auto) 3.9 Absolute Lymphs (auto) 1.41 Total Counted Not Reportable PT 13.7 INR 1.1 APTT 30.0 Sodium 139 Potassium 4.0 Chloride 104 Carbon Dioxide 32.0 Anion Gap 3 L BUN 17 Creatinine 0.77 Estim Creat Clear Calc 109.60 Est GFR (MDRD) Af Amer 142 Est GFR (MDRD) Non-Af 117 BUN/Creatinine Ratio 22.0 H Glucose 105 Calcium 8.9 10/20/18 10/20/18 10/20/18 01:03 04:55 04:55 WBC 6.3 RBC 4.40 L Hgb 14.8 12.8 L Hct 43.0 38.3 L MCV 87.0 MCH 29.1 MCHC 33.4 RDW 13.0 RDW Differential 40.2 Plt Count 227 MPV 10.3 Immature Gran % (Auto) Neut % (Auto) Lymph % (Auto) [place] % (Auto) Eos % (Auto) Baso % (Auto) Absolute Neuts (auto) Absolute Lymphs (auto) Total Counted PT INR APTT Sodium 142 Potassium 3.8 Chloride 107 Carbon Dioxide 26.0 Anion Gap 9 BUN 13 Creatinine 0.66 L Estim Creat Clear Calc 123.74 Est GFR (MDRD) Af Amer 169 Est GFR (MDRD) Non-Af 140 BUN/Creatinine Ratio 19.6 Glucose 81 Calcium 8.5 Assessment/Plan All Active Problems GI bleed (Acute) Constipation (Acute) chronic constipation Currently the patient has also been abdominal pain. He has no significant colonic dilatation but does have significant fecal loading. Since she had bleeding with an enema, at this point, recommend a low residue diet and Leanna lax 2 packets 3 times a day. I would plan to have the patient follow-up in my office next week. We will obtain a KUB for fecal loading. If the patient saw 7 fecal stool workup and for a decompressive colonoscopy otherwise we'll plan for a full bowel prep and then performed colonoscopy. I've asked the family to bring the laxative that he is using to make sure this is not a sentinel implant-based laxative risking for laxative abuse colon issues.
== END 2018-10-20 10:56 | disposition home or self-care (01) ==
LOC: ED 23:55 → PCU 23:57
PROVIDERS: Admitting Provider Family Medicine; Emergency Provider Emergency Medicine; Family Provider Family Medicine; PCP Family Medicine; Visit Provider Internal Medicine
DX: K59.09 Other constipation (principal); Q85.00 Neurofibromatosis, unspecified; J45.909 Unspecified asthma, uncomplicated; Z79.899 Other long term (current) drug therapy; Z79.51 Long term (current) use of inhaled steroids; F70 Mild intellectual disabilities; K92.1 Melena
CPT/HCPCS: 36415; 74018; 80048; 85014; 85018; 85025; 85027; 85610; 85730; 94640; 96361; 96365; 96366; 99218; 99284; J7030; A4216; G0378

== ENCOUNTER 2018-11-08 08:38 | Day surgery (SDC) | payer MEDICARE, MEDICAID, SELFPAY ==
[2018-10-20 00:45] VITALS: BMI 18.4
[2018-11-08] VITALS (7 sets, daily range): BP systolic 107–129; BP diastolic 68–88; PULSE 65–84; RESP 14–16; TEMP 37.2–37.4; O2SAT 97–100; BMI 19.1
--- NOTE | 2018-11-08 | GASB_PTH ---
PATIENT: STACEY WALL LOC: EN U#:[id number] AGE/SX: 43/M ROOM: RE11/08/[address]: Dr. Frantz Young MD : 1975 BED: DIS: 11/08/2018 SPEC #: [id number] RECD: 11/08/18 13:53 STATUS: KELLIE KOURTNEY #: [id number] SARAY: 11/08/18 00:[address]: Frantz Young DEPT: SURGICAL PATHOLOGY RECD BY: Rudy Maldonado ENTERED: 11/08/18 13:54 SP TYPE: Gastric Bx OTHR DR: Dr. Nicholas Collins MD Tissues: A - Gastric mucous membrane B - Esophageal mucous membrane C - Esophageal mucous membrane Procedures: Surgery Specimen Level IV HEADER OPERATION: Colonoscopy, EGD ([facility] [place]) PRE-OP DIAGNOSIS: Reflux and constipation TISSUE SUBMITTED: A - Antrum biopsy for H. pylori and path, B - Distal esophagus biopsy, C - Mid esophagus biopsy MICROSCOPIC DIAGNOSIS A. Gastric antrum, biopsy: Mild chronic gastritis. B. Distal esophagus, biopsy: Hyperplastic gastric mucosa with mild chronic inflammation. C. Mid esophagus, biopsy: Fragments of benign squamous mucosa with changes of reflux. AM:jarrod 11/09/18 COMMENT A. The results of immunohistochemistry for Helicobacter pylori will be reported separately ([id number]). MICROSCOPIC DESCRIPTION Slides are reviewed. GROSS DESCRIPTION A - Received in fixative is one container labeled with the patient's name and designated antral biopsy for H. pylori and pathology. The specimen consists of one irregular fragment of light [place] soft tissue that measures 0.5 x 0.2 x 0.1 cm. The specimen is totally submitted in one cassette. B - Received in fixative is one container labeled with the patient's name and designated distal esophageal biopsy. The specimen consists of one irregular fragment of light [place] soft tissue that measures 0.2 x 0.2 x 0.1 cm. The specimen is totally submitted in one cassette. C - Received in fixative is one container labeled with the patient's name and designated mid esophagus biopsy. The specimen consists of one irregular fragment of light [place] soft tissue that measures 0.4 x 0.3 x 0.1 cm. The specimen is totally submitted in one cassette. / HUGO:jarrod 11/08/18 TC:3 CPT: 81489 x3
--- NOTE | 2018-11-08 11:15 | IMM_PTH ---
PATIENT: STACEY WALL LOC: EN U#:[id number] AGE/SX: 43/M ROOM: RE11/08/[address]: Dr. Frantz Young MD : 1975 BED: DIS: 11/08/2018 SPEC #: [id number] RECD: 11/08/18 14:17 STATUS: KELLIE REQ #: [id number] SARAY: 11/08/18 11:[address]: Frantz Young DEPT: IMMUNOHISTOCHEMISTRY RECD BY: Karmen Leal ENTERED: 11/08/18 14:18 SP TYPE: IMMUNO OTHR DR: Dr. Nicholas Collins MD Tissues: A - Stomach, NOS Procedures: H Pylori (initial) PHYSICIAN & INSTITUTION [place] [id number] SPECIMEN INFORMATION: Tissue Source: A - Antrum biopsy Clinical Info: Reflux and constipation Specimen Number: [id number] CPT code: 71146 METHODOLOGY: Deparaffinized sections of prefer/formalin-fixed tissue or PAP/DQ stained slides are incubated with monoclonal/polyclonal antibodies/oligonucleotide probes. Localization is made via biotin free immunoperoxidase method. Appropriate controls are performed and reacted as expected. Results on target cell population are indicated in the following table: RESULTS: ANTIBODY / CLONE RESULT Block A H Pylori (polyclonal) negative These tests were developed and their performance characteristics determined by [facility]. They may not have been cleared or approved by the U.S. Food and Drug Administration. The FDA has determined that such clearance or approval is not necessary. INTERPRETATION: A. Antrum biopsy: Negative for Helicobacter pylori organisms. AM:jarrod 11/09/18
--- NOTE | 2018-11-08 12:17 | OP.ENDO_ITS ---
Patient Name: Josh Navarro Procedure Date: 11/08/2018 11:38 AM Date of : 1975 Age: 43 Procedure: Upper GI endoscopy Indications: Suspected gastro-esophageal reflux disease Providers: Frantz Young MD Medicines: Monitored Anesthesia Care Patient Profile: This is a 43 year old male. Refer to note in patient chart for documentation of history and physical. Complications: No immediate complications. Procedure: Pre-Anesthesia Assessment: - Prior to the procedure, a History and Physical was performed, and patient medications and allergies were reviewed. The patient is competent. The risks and benefits of the procedure and the sedation options and risks were discussed with the patient. All questions were answered and informed consent was obtained. Patient identification and proposed procedure were verified by the physician, the nurse and the anesthesiologist in the procedure room. Mental Status Examination: alert and oriented. Airway Examination: normal oropharyngeal airway and neck mobility. Respiratory Examination: clear to auscultation. CV Examination: normal. Prophylactic Antibiotics: The patient does not require prophylactic antibiotics. Prior Anticoagulants: The patient has taken no previous anticoagulant or antiplatelet agents. ASA Grade Assessment: III - A patient with severe systemic disease. After reviewing the risks and benefits, the patient was deemed in satisfactory condition to undergo the procedure. The anesthesia plan was to use monitored anesthesia care (MAC). Immediately prior to administration of medications, the patient was re-assessed for adequacy to receive sedatives. The heart rate, respiratory rate, oxygen saturations, blood pressure, adequacy of pulmonary ventilation, and response to care were monitored throughout the procedure. The physical status of the patient was re-assessed after the procedure. After obtaining informed consent, the endoscope was passed under direct vision. Throughout the procedure, the patient's blood pressure, pulse, and oxygen saturations were monitored continuously. The gastroscope was introduced through the mouth, and advanced to the jejunum. The upper GI endoscopy was accomplished without difficulty. The patient tolerated the procedure well. Scope In: 11:51:33 AM Scope Out: 11:56:20 AM Total Procedure Duration Time 0 hours 4 minutes 47 seconds Findings: The examined jejunum was normal. Patchy moderately erythematous mucosa without active bleeding and with no stigmata of bleeding was found in the duodenal bulb. Two non-bleeding superficial gastric ulcers with no stigmata of bleeding were found in the gastric antrum. Diffuse moderate inflammation characterized by erosions and erythema was found in the gastric antrum. Biopsies were taken with a cold forceps for Helicobacter pylori cultures. Biopsies were taken with a cold forceps for histology. Non-severe esophagitis with no bleeding was found. The middle third of the esophagus was normal. Biopsies were taken with a cold forceps for histology. Impression: - Normal examined jejunum. - Erythematous duodenopathy. - Non-bleeding gastric ulcers with no stigmata of bleeding. - Gastritis. Biopsied. - Non-severe reflux esophagitis. - Normal middle third of esophagus. Biopsied. Recommendation: - Return to my office in 1 week. - Continue present medications. Procedure Code(s): --- Professional --- 88624, Esophagogastroduodenoscopy, flexible, transoral; with biopsy, single or multiple CPT copyright 2017 [employer]. All rights reserved. The codes documented in this report are preliminary and upon securities teller review may be revised to meet current compliance requirements. Frantz Young MD 11/08/2018 12:16:35 PM This report has been signed electronically. Number of Addenda: 0 Note Initiated On: 11/08/2018 11:38 AM
--- NOTE | 2018-11-08 12:19 | OP.ENDO_ITS ---
Patient Name: Josh Navarro Procedure Date: 11/08/2018 11:58 AM Date of : 1975 Age: 43 Procedure: Colonoscopy Indications: Constipation Providers: Frantz Young MD Medicines: Monitored Anesthesia Care Patient Profile: This is a 43 year old male. Refer to note in patient chart for documentation of history and physical. Last Colonoscopy: none. The patient's first colonoscopy is today. Complications: No immediate complications. Procedure: Pre-Anesthesia Assessment: - Prior to the procedure, a History and Physical was performed, and patient medications and allergies were reviewed. The patient is competent. The risks and benefits of the procedure and the sedation options and risks were discussed with the patient. All questions were answered and informed consent was obtained. Patient identification and proposed procedure were verified by the physician, the nurse and the anesthesiologist in the procedure room. Mental Status Examination: alert and oriented. Airway Examination: normal oropharyngeal airway and neck mobility. Respiratory Examination: clear to auscultation. CV Examination: normal. Prophylactic Antibiotics: The patient does not require prophylactic antibiotics. Prior Anticoagulants: The patient has taken no previous anticoagulant or antiplatelet agents. ASA Grade Assessment: III - A patient with severe systemic disease. After reviewing the risks and benefits, the patient was deemed in satisfactory condition to undergo the procedure. The anesthesia plan was to use monitored anesthesia care (MAC). Immediately prior to administration of medications, the patient was re-assessed for adequacy to receive sedatives. The heart rate, respiratory rate, oxygen saturations, blood pressure, adequacy of pulmonary ventilation, and response to care were monitored throughout the procedure. The physical status of the patient was re-assessed after the procedure. After I obtained informed consent, the scope was passed under direct vision. Throughout the procedure, the patient's blood pressure, pulse, and oxygen saturations were monitored continuously. The pediatric colonoscope was introduced through the anus and advanced to the cecum, identified by the appendiceal orifice, ileocecal valve and palpation. The colonoscopy was performed without difficulty. The patient tolerated the procedure well. The quality of the bowel preparation was good. Scope In: 12:00:04 PM Scope Withdrawal Time 0 hours 5 minutes 0 seconds Scope Out: 12:10:43 PM Total Procedure Duration Time 0 hours 10 minutes 39 seconds Findings: The perianal and digital rectal examinations were normal. The entire examined colon appeared normal on direct and retroflexion views. Impression: - The entire examined colon is normal on direct and retroflexion views. - No specimens collected. Recommendation: - Discharge patient to home. - Resume previous diet. - Continue present medications. - Repeat colonoscopy in 10 years for screening purposes. - Return to my office in 1 week. Procedure Code(s): --- Professional --- 37849, Colonoscopy, flexible; diagnostic, including collection of specimen(s) by brushing or washing, when performed (separate procedure) CPT copyright 2017 [employer]. All rights reserved. The codes documented in this report are preliminary and upon commercial credit portfolio manager review may be revised to meet current compliance requirements. Frantz Young MD 11/08/2018 12:19:28 PM This report has been signed electronically. Number of Addenda: 0 Note Initiated On: 11/08/2018 11:58 AM
== END 2018-11-08 13:12 | disposition home or self-care (01) ==
LOC: EN 08:39 → AC 08:42
PROVIDERS: Family Provider Family Medicine; PCP Family Medicine; Referring Provider Surgery; Visit Provider Surgery
PROC: 0DJD8ZZ Inspection of Lower Intestinal Tract, Via Natural or Artificial Opening Endoscopic (ICD-10-PCS; CPT 45378; principal; 2018-11-08 11:10)
DX: K59.00 Constipation, unspecified (principal); K21.0 Gastro-esophageal reflux disease with esophagitis; K25.9 Gastric ulcer, unspecified as acute or chronic, without hemorrhage or perforation; K29.50 Unspecified chronic gastritis without bleeding; F84.0 Autistic disorder; F79 Unspecified intellectual disabilities; E78.2 Mixed hyperlipidemia; J45.30 Mild persistent asthma, uncomplicated; G43.909 Migraine, unspecified, not intractable, without status migrainosus; Z79.899 Other long term (current) drug therapy
CPT/HCPCS: 43239; 45378; 88305; 88342; J7120

== ENCOUNTER → 2019-01-03 05:42 | Outpatient (CLI) | payer MEDICARE, MEDICAID, SELFPAY ==
[2018-11-08 09:52] VITALS: BMI 19.1
--- NOTE | 2019-01-03 06:43 | MRI_ITS ---
STUDY: MRI ORBITS WITH AND WITHOUT CONTRAST REASON FOR EXAM: Male, 43 years old. optic nerve glioma L, NEUROFIBROMATOSIS. TECHNIQUE: Standardized fat and water weighted pulse sequences were obtained in all 3 orthogonal planes, pre-and post contrast administration. 6 ml of Gadavist contrast material was administered intravenously for the contrast portion of the examination. COMPARISON: September 22, 2018 CT of the head FINDINGS: Normal bilateral globes. There is mild diffuse enlargement of the right optic nerve sheath complexes with increased diffusion along the optic nerve. The optic nerve enhancement extends into the prechiasmatic segment. There is no convincing enhancement. Normal left optic nerve sheath complexes. Normal bilateral intraconal and extraconal spaces. Normal bilateral extraocular muscles. Normal optic chiasm and post-chiasmatic tracts. Normal sella turcica, pituitary gland, infundibular stalk, and hypothalamus. Normal bilateral cavernous sinuses. Normal tectal plate and pineal gland. Normal flow voids within the major intracranial circulation suggesting patency by spin echo criteria. Normal size of the ventricles and extra-axial spaces for the patient's age. Normal white matter tracts of the supratentorial brain. Normal bilateral basal ganglia. Normal thalami. There is no extra-axial fluid accumulation. Normal midbrain, mindy and medulla. Normal cerebellum. Normal basal cisterns. MRI/Brain W/WO Contrast IMPRESSION: Enlargement of the right optic nerve, consistent with history of neoplasm. Comparison with prior examinations is recommended. Electronically Signed: Sophia Dunn MD at 8:04 EST Tel , Service support ,
== END ==
PROVIDERS: Family Provider Family Medicine; PCP Family Medicine; Referring Provider Ophthalmology; Visit Provider Ophthalmology
DX: C72.30 Malignant neoplasm of unspecified optic nerve (principal); Q85.00 Neurofibromatosis, unspecified
CPT/HCPCS: 70553; A9585

== ENCOUNTER → 2019-04-05 09:25 | Outpatient (CLI) | payer MEDICARE, MEDICAID, SELFPAY ==
[2018-11-08 09:52] VITALS: BMI 19.1
[2019-04-05 10:41] LABS: Erythrocyte Sedimentation Rate < 1 mm/hr (0-15)
== END ==
PROVIDERS: Family Provider Family Medicine; PCP Family Medicine; Referring Provider Psychiatry & Neurology Neurology; Visit Provider Psychiatry & Neurology Neurology
DX: R51 Headache (principal)
CPT/HCPCS: 36415; 85652

== ENCOUNTER → 2019-04-11 10:32 | Outpatient (CLI) | payer MEDICARE, MEDICAID, SELFPAY ==
[2018-11-08 09:52] VITALS: BMI 19.1
--- NOTE | 2019-04-11 10:44 | MRI_ITS ---
STUDY: MRI BRAIN AND ORBITS WITH AND WITHOUT CONTRAST REASON FOR EXAM: Male, 43 years old. Optic glioma and headaches for 2 years. Patient has neurofibromatosis. TECHNIQUE: Standardized multiplanar fat and water weighted pulse sequences were obtained. 13 ml of IV Gadavist was administered for the contrast portion of the examination. COMPARISON: MRI of the brain dated January 03, 2019. FINDINGS: Normal bilateral globes. There is enlargement of the right optic nerve compared to the left. Maximum transverse dimension of the right optic nerve measures approximately 6 mm in greatest transverse dimension. There is no appreciable enhancement of the optic glioma. The left-sided optic nerve is within normal limits. Normal bilateral intraconal and extraconal spaces. Normal bilateral extraocular muscles. The optic chiasm is also mildly enlarged. Normal sella turcica, pituitary gland, infundibular stalk, and hypothalamus. Normal bilateral cavernous sinuses. Normal tectal plate and pineal gland. Normal flow voids within the major intracranial circulation suggesting patency by spin echo criteria. Normal size of the ventricles and extra-axial spaces for the patient's age. There are a limited number of small white matter hyperintensities, distributed throughout the deep white matter tracts of the cerebral hemispheres. Normal bilateral basal ganglia. Normal thalami. There is no extra-axial fluid accumulation. Normal T2* images of the brain without demonstrated susceptibility artifact. There is no demonstrated hemosiderin stain. There is no evidence for recent intracranial ischemia or other cause of cytotoxic edema on diffusion weighted imaging (DWI). Normal midbrain, mindy and medulla. There is a small focus of abnormal signal within the right cerebellar hemisphere only well seen on the FLAIR images on axial image #5 that measures approximately 1.6 cm. This may represent additional manifestation of neurofibromatosis 1. Cerebellum otherwise has a grossly normal appearance. Normal basal cistern Normal visualized paranasal sinuses. Normal calvarium and skull base. There is a new abnormal signal within the left paramedian frontal scalp measuring approximately 2.1 x 1.5 x 0.6 cm in size. This is a visible on the previous MRI as well. Normal visualized upper cervical spine. MRI/Brain W/WO Contrast IMPRESSION: 1. Probably unchanged appearance of enlargement of the right optic nerve and optic chiasm since the previous study. 2. Unchanged abnormal signal within the right cerebellar hemisphere which may also be the result of neurofibromatosis. 3. Unchanged appearance to nonspecific left frontal scalp lesion. Electronically Signed: Iqra Pacheco MD at 19:29 EDT , Service support ,
== END ==
PROVIDERS: Family Provider Family Medicine; PCP Family Medicine; Referring Provider Psychiatry & Neurology Neurology; Visit Provider Psychiatry & Neurology Neurology
DX: C72.30 Malignant neoplasm of unspecified optic nerve (principal); R51 Headache
CPT/HCPCS: 70553; A9575

== ENCOUNTER 2023-06-08 09:21 | Emergency (ER) | payer MEDICARE, MEDICAID, SELFPAY ==
[2023-06-08 09:22] VITALS: BP 178/91; PULSE 81; RESP 18; TEMP 36.6; O2SAT 98; BMI 22.0
--- NOTE | 2023-06-08 09:44 | EKG12_ITS ---
Test Reason : CP Blood Pressure : / mmHG Vent. Rate : 072 BPM Atrial Rate : 072 BPM P-R Int : 170 ms QRS Dur : 084 ms QT Int : 362 ms P-R-T Axes : 025 101 025 degrees QTc Int : 396 ms Normal sinus rhythm Possible Right ventricular hypertrophy Abnormal ECG Confirmed by HEATHER GREEN, ELIJAH ([id number]), assistant production editor CAROL ACHARYA ([id number]) on 06/09/2023 11:44:02 AM Referred By: BB/NATE Confirmed By:ELIJAH ROMERO MD
--- NOTE | 2023-06-08 09:46 | ED.VIS.CHEST ---
HPI History of Present Illness Chief Complaint: Chest Pain Informant: patient and parent (Father) Narrative Narrative: Patient was sitting watching TV started having spontaneous onset of chest discomfort last night around 12 hours prior to evaluation. States he was just resting at the time. Is been constant since then. Nonpleuritic. States he felt a little dyspneic last night but not since. No near syncope but he has had some occasional skipping palpitations. No history of this, no history of any heart problems or thromboembolic disease. No recent travel out of the area, immobilization, hospitalization, or surgery. Has asthma but states this does not necessarily feel like that or wheezing. He has some allergies that are seasonal given him some congestion and a minor cough that is no different than usual. The discomfort has not gone away at all since it started last night. He states walking seems to make it worse, but lying down does not seem to make it any different. [facility] Medical History (Updated 06/08/23 @ 11:[address] Edenilson Rivas MD) Asthma MRDD Neurofibromatosis Home Medications albuterol sulfate 90 mcg/actuation aerosol inhaler (Ventolin HFA) 1 - 2 puff inhalation Q4H PRN PRN Wheezing 06/21/14 [History Last Taken Unknown] Olopatadine Hcl [Patanol] 2 drp DAILY 10/19/18 [History Last Taken Unknown] albuterol sulfate 2.5 mg/3 mL (0.083 %) solution for nebulization 2.5 mg inhalation Q6H PRN PRN Sob &/Or Wheezing 10/19/18 [History Last Taken Unknown] fluticasone propionate 44 mcg/actuation HFA aerosol inhaler (Flovent HFA) 2 puff inhalation BID 10/19/18 [History Last Taken Unknown] fluticasone propionate 50 mcg/actuation nasal spray,suspension 2 spray DAILY 10/19/18 [History Last Taken Unknown] cetirizine 10 mg capsule (Zyrtec) 10 mg PO DAILY allergies 10/20/18 [History Last Taken 10/19/18] polyethylene glycol 3350 17 gram oral powder packet 17 g PO TID ##21 10/20/18 [Rx Last Taken Unknown] omeprazole 20 mg capsule,delayed release 40 mg (2 x 20 mg) PO DAILY #60 caps 11/08/18 [Rx Last Taken Unknown] Allergy/AdvReac Type Severity Reaction Status Date / Time No Known Allergies Allergy Verified 06/08/23 09:24 Social History Smoking Status: Never smoker ROS ROS ED Constitutional Constitutional ED: Denies chills, fever(s) or sweats Eyes Eyes: Denies change in vision or diplopia ENT ENT ED: Reports rhinorrhea; Denies sore throat Cardiovascular Cardiovascular: Reports chest pain and palpitations Respiratory/Chest Respiratory/Chest: Reports cough and dyspnea Gastrointestinal Gastrointestinal: Denies abdominal pain, diarrhea, nausea or vomiting Genitourinary Genitourinary ED: Denies dysuria or hematuria Musculoskeletal Musculoskeletal: Denies back pain or neck pain Integumentary Denies abscess or rash Neurologic Neurologic: Denies headache(s), paresthesias or weakness Psychiatric Psychiatric: Denies anxiety or suicidal thoughts EXAM Physical Exam Const Vital Signs: 06/08/23 09:22 06/08/23 09:35 06/08/23 09:55 Temperature 97.8 F Temperature Source Temporal Pulse Rate 81 Respiratory Rate 18 Respiratory Pattern Normal Blood Pressure 178/91 H Blood Pressure Mean 120 Pulse Ox 98 Oxygen Delivery Method Room Air Room Air Positive well nourished and well developed General Appearance ED: well developed and NAD HEENT Reports moist mucous membranes normocephalic and atraumatic Eyes PERRL and EOMs intact bilaterally Neck full ROM and supple Chest Wall inspection of chest normal and palpation of chest normal Resp normal respiratory effort and clear to auscultation bilaterally Effort and Inspection: Negative for respiratory distress Cardio regular rate, regular rhythm and no murmurs Rate: Negative for tachycardic GI non-tender and non-distended Auscultation: normoactive bowel sounds Palpation: soft Back/Spine no CVA tenderness General Back: other FROM Extremity normal to inspection, no calf tenderness and no pedal edema General Extremety ED: Negative for edema, pulses abnormal or tenderness General Extremity: Negative for edema or pulses abnormal Neuro oriented x3, CN's II-XII intact bilaterally and no sensory deficits noted Sensorium / Orientation: awake and alert Motor Exam: strength 5/5 throughout Skin no rashes or lesions noted and no wounds Heart Score History: Slightly/Non-Suspicious ECG: Nonspecific Repolarization Age: >45 - <65 years Risk Factors: No Risk Factors Troponin: </= Normal Limit Score: 2 MDM MDM MDM Narrative Medical decision making narrative: Patient has some inferior EKG abnormalities that are nonspecific but similar to his old EKG. His troponin is negative and he has been having discomfort for 12 hours unrelenting, chest x-ray 2 views on my interpretation normal showing no pneumothorax or wide mediastinum, nor pneumonia. Radiology in agreement. The rest of his labs are unremarkable. His PERC score is 0 so we do not need to do further testing in order to rule out pulmonary embolus for these symptoms, and furthermore his symptoms resolved after a GI cocktail suggesting this is GERD/GI etiology. Reassured discharged home if he continues to have symptoms advised to use an H2 matias or PPI for a week or 2 and follow-up and they are comfortable with that plan. Lab Data Attestation: I reviewed the patient's lab results. Labs: Laboratory Results - last 24 hr 06/08/23 10:00 WBC 5.1 RBC 5.11 Hgb 14.9 Hct 43.7 MCV 85.5 MCH 29.2 MCHC 34.1 RDW Std Deviation 38.5 RDW Coeff of Ivet 12.4 Plt Count 240 MPV 9.4 Immature Gran % (Auto) 0.600 Neut % (Auto) 68.5 Lymph % (Auto) 17.4 L [place] % (Auto) 8.5 Eos % (Auto) 3.6 Baso % (Auto) 1.4 H Absolute Neuts (auto) 3.5 Absolute Lymphs (auto) 0.88 Nucleated RBC % 0 Sodium 137 Potassium 3.7 Chloride 106 Carbon Dioxide 28.0 Anion Gap 3 L BUN 10 Creatinine 0.82 Estim Creat Clear Calc 114.11 Est GFR (MDRD) Af Amer 129 Est GFR (MDRD) Non-Af 107 BUN/Creatinine Ratio 12.1 Glucose 98 Calcium 9.6 Troponin I High Sens < 3 L Radiography Diagnostic Testing: Clinical Impression(s) from Imaging Studies Chest X-Ray 06/08/23 10:30 IMPRESSION: Normal x-ray examination of the chest. Electronically Signed: Mauricio Ellison MD at 10:55 EDT , Rhythm Strip Rhythm Strip: Sinus Rhythm Rate: 72 Ectopy: None EKG Initial EKG: Attestation: I personally reviewed and interpreted this EKG as follows: Interpretation: Sinus Rhythm, No Acute Injury Pattern and Inverted T-Waves (V1 & III only) Comments: Tall QRS complexes inferiorly and in septal leads, suspected to be due to asthenic build Prior EKG tracings: available for review (2018) Prior: Unchanged Discharge Plan Triage Chief Complaint: Chest Pain ED Provider: Edenilson Rivas Dx/Rx/DC Orders Clinical Impression: Chest pain due to GERD Instructions: GERD Dc Prescriptions: No Action albuterol sulfate [Ventolin HFA] 1 INHALER inhaler 1 - 2 puff inhalation Q4H PRN PRN (Reason: Wheezing) albuterol sulfate 2.5 MG/3 ML solution for nebulization 2.5 mg inhalation Q6H PRN PRN (Reason: Sob &/Or Wheezing) fluticasone propionate [Flovent HFA] 1 INHALER inhaler 2 puff inhalation BID fluticasone propionate 1 SPRAY spray,suspension 2 spray NASAL DAILY Olopatadine Hcl [Patanol] 1 DROP bottle 2 drp Each Eye DAILY Rx Instructions: 0.2% Zyrtec 10 MG capsule 10 mg PO DAILY polyethylene glycol 3350 17 GM powder in packet 17 g PO TID Qty: 21 0RF omeprazole 20 MG capsule 40 mg PO DAILY Qty: 60 5RF Primary Care Provider: Nicholas Collins Referrals: Nicholas Collins MD [Primary Care Provider] - 1 Week if not improving Activity Restrictions/Additional Instructions: If you continue to have discomfort, you can take Pepcid or Prilosec or Nexium once daily for a week or 2 and follow-up with your doctor. To take care of the discomfort, you may also try taking a dose of Mylanta or Maalox. Disposition Disposition: Home, Self Care
[2023-06-08 10:10] LABS: Absolute Lymphocyte Count 0.88 X10^3/uL (0.83-4.51); Absolute Neutrophil Count 3.5 X10^3/uL (2.0-7.7); Basophil# 0.07 X10^3/uL; Basophil% 1.4 % (0-1); Eosinophil# 0.18 X10^3/uL; Eosinophils% 3.6 % (0-5); Hematocrit 43.7 % (40-54); Hemoglobin 14.9 g/dL (13.0-16.5); Lymphocyte # 0.88 X10^3/ul (0.83-4.51); Lymphocyte % 17.4 % (19-41); Mean Corp Hgb Conc 34.1 g/dL (32-36); Mean Corpuscular Hgb 29.2 pg (27.0-32.0); Mean Corpuscular Volume 85.5 fL (80-94); Mean Platelet Vol. 9.4 fl (6.2-12.0); Monocyte# 0.43 X10^3/uL; Monocyte% 8.5 % (0-10); NRBC Flagged by Analyzer 0 % (0-5); Neutrophil # 3.47 X10^3/uL (2.7-7.7); Neutrophil % 68.5 % (47-70); Platelet Count 240 K/mm3 (150-450); RBC Distribution Width CV 12.4 % (11.6-14.6); RBC Distribution Width SD 38.5 fl (35.1-43.9); Red Blood Count 5.11 M/mm3 (4.6-6.2); White Blood Count 5.1 K/mm3 (4.4-11.0)
[2023-06-08] MEDS: Mag Hydrox/Al Hydrox/Simeth 30 ML UDC PO (10:30)
--- NOTE | 2023-06-08 10:30 | RAD_ITS ---
STUDY: X-RAY CHEST REASON FOR EXAM: Male, 47 years old. Chest pain TECHNIQUE: PA and lateral views of the chest. COMPARISON: Comparison is made with prior study September 22, 2019. FINDINGS: EKG electrodes are seen. The lungs are clear and expanded. There is no demonstrated pleural abnormality. Normal size heart. Normal mediastinum and nicolle. Normal visualized pulmonary arteries. Normal visualized aortic arch and descending thoracic aorta. Normal visualized thoracic spine. Normal visualized ribs, clavicles, and shoulders. There is no demonstrated abnormality of the visualized soft tissue structures of the upper abdomen. RAD/Chest PA and Lateral IMPRESSION: Normal x-ray examination of the chest. Electronically Signed: Mauricio Ellison MD at 10:55 EDT ,
[2023-06-08 10:31] LABS: Anion Gap 3 (5-15); BUN 10 mg/dL (7-18); BUN/Creat Ratio 12.1 RATIO (10-20); Calcium,Total 9.6 mg/dL (8.5-10.1); Chloride 106 mmol/L (98-107); Creatinine, Serum 0.82 mg/dL (0.70-1.30); EST Glomerular Filtration Rate 107 mL/min (>60); Est Glom Filt Rate - Afr Amer 129 mL/min (>60); Estimated Creatinine Clearance 114.11 ml/min; Glucose 98 mg/dL (74-106); Potassium 3.7 mmol/L (3.5-5.1); Sodium Level 137 mmol/L (136-145); Troponin-I HS < 3 pg/mL (3.0-78.0)
[2023-06-08 11:57] VITALS: BP 157/93; PULSE 74; RESP 18; O2SAT 99
== END 2023-06-08 12:02 | disposition home or self-care (01) ==
PROVIDERS: Emergency Provider Emergency Medicine; PCP Family Medicine; Visit Provider Emergency Medicine
DX: K21.9 Gastro-esophageal reflux disease without esophagitis (principal); J45.909 Unspecified asthma, uncomplicated; F79 Unspecified intellectual disabilities
CPT/HCPCS: 71046; 80048; 84484; 85025; 93005; 99285; A4216

== ENCOUNTER 2023-06-09 10:33 | Emergency (ER) | payer MEDICARE, MEDICAID, SELFPAY ==
[2023-06-09 10:35] VITALS: BP 137/88; PULSE 81; RESP 16; TEMP 36; O2SAT 98
--- NOTE | 2023-06-09 10:50 | ED.VIS.CHEST ---
HPI History of Present Illness Chief Complaint: Chest Pain [facility] Medical History (Updated 06/09/23 @ 12:[address] Adin Burks, DO) Asthma MRDD Neurofibromatosis Home Medications albuterol sulfate 90 mcg/actuation aerosol inhaler (Ventolin HFA) 1 - 2 puff inhalation Q4H PRN PRN Wheezing 06/21/14 [History Last Taken Unknown] Olopatadine Hcl [Patanol] 2 drp DAILY 10/19/18 [History Last Taken Unknown] albuterol sulfate 2.5 mg/3 mL (0.083 %) solution for nebulization 2.5 mg inhalation Q6H PRN PRN Sob &/Or Wheezing 10/19/18 [History Last Taken Unknown] fluticasone propionate 44 mcg/actuation HFA aerosol inhaler (Flovent HFA) 2 puff inhalation BID 10/19/18 [History Last Taken Unknown] fluticasone propionate 50 mcg/actuation nasal spray,suspension 2 spray DAILY 10/19/18 [History Last Taken Unknown] cetirizine 10 mg capsule (Zyrtec) 10 mg PO DAILY allergies 10/20/18 [History Last Taken 10/19/18] polyethylene glycol 3350 17 gram oral powder packet 17 g PO TID ##21 10/20/18 [Rx Last Taken Unknown] omeprazole 20 mg capsule,delayed release 40 mg (2 x 20 mg) PO DAILY #60 caps 11/08/18 [Rx Last Taken Unknown] Allergy/AdvReac Type Severity Reaction Status Date / Time No Known Allergies Allergy Verified 06/09/23 10:35 Social History Smoking Status: Never smoker EXAM Physical Exam Const Vital Signs: 06/09/23 10:35 06/09/23 11:29 Temperature 96.8 F L Temperature Source Temporal Pulse Rate 81 Respiratory Rate 16 Blood Pressure 137/88 H Blood Pressure Mean 104 Pulse Ox 98 Oxygen Delivery Method Room Air Room Air MDM MDM MDM Narrative Medical decision making narrative: HISTORY OF PRESENT ILLNESS: 47-year-old male here for chest pain and congestion. Notes symptoms are gone for 24 hours. He does endorse a cough that is nonproductive. They are exertional. They are not sharp ripping or tearing. No vomiting associated. No syncope associated no history of heart attacks no cocaine or methamphetamine abuse. Patient denies sudden onset of pain, no tearing sensation, no migratory symptoms, no new numbness, weakness or loss of sensation. Patient denies family history or personal history of Marfan syndrome or Cherry-Danlos the patient denies recent surgery in the last 4 weeks or immobilization in the last 3 days, denies previous diagnosis of DVT or PE, hemoptysis, unilateral leg swelling or malignancy with treatment the last 6 months. No estrogen use noted. REVIEW OF SYSTEMS: Pertinent positives: Chest pain, chest congestion Pertinent negatives: Syncope, focal weakness PHYSICAL EXAM: Nursing triage notes reviewed, Vital signs reviewed Constitutional: please see mdm HENT: MMM Eyes: Pupils equal round and reactive to light, Extraocular muscles intact Neck: No stridor, no JVD, full neck ROM Lungs: Clear to auscultation, No wheezing or rales. No increased work of breathing, no conversational dyspnea, no accessory muscle use, no nasal flaring. No respiratory distress noted Heart: Regular rate and rhythm, No murmurs, No rubs and No gallops, 2+ distal pulses (radial, femoral, posterior tibial) in all extremities Abdomen: Soft, there is no tenderness, rigidity, rebound or guarding, no obvious peritoneal signs, no palpable pulsatile abdominal masses, no auscultated abdominal bruit : No CVAT Extremities: No edema Neuro: No focal neurological deficits, cranial nerves II through XII intact, 5/5 strength in all extremities. Intact sensation to light touch in all extremities, 2+ reflexes bilateral patella tendons. Normal gait. No ataxia. Skin: No rash or lesions noted MEDICAL DECISION MAKING: Chief Complaint: Chest pain External records reviewed: CBC from yesterday shows no leukocytosis or anemia, BMP without evidence of electrolyte abnormality or acute kidney injury, troponin was also negative, chest x-ray was without evidence of pneumothorax or pneumonia Factors affecting care: Asthma, GERD Social determinants of health: Never smoker History obtained from others: Patient's father Consults: none ALL IMAGES (IF OBTAINED) HAVE BEEN PERSONALLY REVIEWED AND INTERPRETED BY MYSELF. EKG with normal sinus rhythm, normal axis, normal intervals, no obvious STEMI D-dimer negative making VTE less likely Troponin is negative, no evidence of myocardial ischemia BNP within normal limits making heart failure less likely CBC without leukocytosis, severe anemia, no thrombocytopenia. BMP without evidence of significant electrolyte abnormalities, no anion gap, no acute kidney injury. MDM Narrative: The patient was hemodynamically stable, afebrile, nontoxic-appearing. I considered the following differential diagnosis: PE less likely given low risk Wells score. Aortic dissection is thought to be less likely given no sudden ripping or tearing pain, migratory pain, palpable pulse inequalities, no focal neurologic deficits concurrent with chest pain. Chance of dissection less than 11/1999. Pericarditis less likely given no pathognomonic EKG changes (no diffuse ST elevations, [place] depressions). GI etiology (i.e. Boerhaave syndrome) less likely given no chest or neck crepitus, no vomiting or forced retching. I completed a HEART Score to screen for Major Adverse Cardiac Event (MACE) in this patient. The evidence indicates that the patient is very low risk for MACE and this is consistent with my clinical intuition. The risk of further workup or hospitalization for MACE is likely higher than the risk of the patient having a MACE. It is, therefore, in the patient?s best interest not to do additional emergent testing or to be hospitalized for MACE at this time. Shared Decision-Making No hospitalization indicated I have discussed with the patient my clinical impression and the result of the HEART Score to screen for MACE, as well as the risks of further testing and hospitalization. The HEART Score shows that the risk for MACE is less than 1%. Although the risk of MACE has not been completely eliminated, the risks of further testing or hospitalization for MACE likely exceed any potential benefit, and the patient agrees with not pursuing further emergent evaluation or hospitalization for MACE at this time. The patient and/or family, caregivers express understanding. The patient and/or family, caregivers agrees with the plan. Total critical care time today provided was at least 0 minutes. This excludes separately billable procedures. Critical care time (if documented) is secondary to the patient having high probability of clinically significant/life threatening deterioration in the patient's condition which required my urgent intervention. Shared decision making: I will have a discussion with the patient and or visitors regarding risk/benefits of further testing or admission. They will be made aware of of the risk/benefits inherent in this decision they will be given the opportunity to voice understanding. Lab Data Attestation: I reviewed the patient's lab results. Labs: Laboratory Results - last 24 hr 06/09/23 11:15 WBC 3.8 L RBC 4.83 Hgb 14.5 Hct 40.8 MCV 84.5 MCH 30.0 MCHC 35.5 RDW Std Deviation 38.3 RDW Coeff of Ivet 12.6 Plt Count 218 MPV 9.5 Immature Gran % (Auto) 0.500 Neut % (Auto) 52.4 Lymph % (Auto) 25.1 [place] % (Auto) 11.9 H Eos % (Auto) 8.5 H Baso % (Auto) 1.6 H Absolute Neuts (auto) 2.0 Absolute Lymphs (auto) 0.95 Nucleated RBC % 0 D-Dimer Quant (PE/DVT) < 0.27 L Sodium 138 Potassium 3.7 Chloride 104 Carbon Dioxide 30.0 Anion Gap 4 L BUN 14 Creatinine 0.84 Est GFR (MDRD) Af Amer 126 Est GFR (MDRD) Non-Af 104 BUN/Creatinine Ratio 16.6 Glucose 105 Calcium 9.1 Troponin I High Sens 3 B-Natriuretic Peptide 2.6 Radiography Diagnostic Testing: Clinical Impression(s) from Imaging Studies Chest X-Ray 06/09/23 11:35 IMPRESSION: Normal x-ray examination of the chest. Electronically Signed: Mauricio Ellison MD at 12:04 EDT , Discharge Plan Triage Chief Complaint: Chest Pain ED Provider: Adin Burks Dx/Rx/DC Orders Clinical Impression: Chest pain Instructions: Chest Pain [facility] Prescriptions: No Action albuterol sulfate [Ventolin HFA] 1 INHALER inhaler 1 - 2 puff inhalation Q4H PRN PRN (Reason: Wheezing) albuterol sulfate 2.5 MG/3 ML solution for nebulization 2.5 mg inhalation Q6H PRN PRN (Reason: Sob &/Or Wheezing) fluticasone propionate [Flovent HFA] 1 INHALER inhaler 2 puff inhalation BID fluticasone propionate 1 SPRAY spray,suspension 2 spray NASAL DAILY Olopatadine Hcl [Patanol] 1 DROP bottle 2 drp Each Eye DAILY Rx Instructions: 0.2% Zyrtec 10 MG capsule 10 mg PO DAILY polyethylene glycol 3350 17 GM powder in packet 17 g PO TID Qty: 21 0RF omeprazole 20 MG capsule 40 mg PO DAILY Qty: 60 5RF Primary Care Provider: Nicholas Collins Referrals: Nicholas Collins MD [Primary Care Provider] - Activity Restrictions/Additional Instructions: Thank you for trusting us with your care today! Please take Tylenol (2 pills, 650 mg), ibuprofen (2 pills, 400 mg) every 6 hours as needed for pain and fever control. Please return to the emergency department if your symptoms change or worsen. Please follow with your primary care physician for further outpatient evaluation and management. Disposition Disposition: Home, Self Care
--- NOTE | 2023-06-09 11:26 | EKG12_ITS ---
Test Reason : CP Blood Pressure : / mmHG Vent. Rate : 074 BPM Atrial Rate : 074 BPM P-R Int : 182 ms QRS Dur : 084 ms QT Int : 368 ms P-R-T Axes : 031 100 022 degrees QTc Int : 408 ms Normal sinus rhythm Rightward axis Borderline ECG Confirmed by HEATHER GREEN, ELIJAH ([id number]), editor news CAROL ACHARYA ([id number]) on 06/10/2023 10:21:33 AM Referred By: TL Confirmed By:ELIJAH ROMERO MD
--- NOTE | 2023-06-09 11:35 | RAD_ITS ---
STUDY: X-RAY CHEST REASON FOR EXAM: Male, 47 years old. Chest pain TECHNIQUE: Single AP portable view of the chest. COMPARISON: Comparison is made with prior study June 08, 2023. FINDINGS: EKG electrodes are seen. The lungs are clear and expanded. There is no demonstrated pleural abnormality. Normal size heart. Normal mediastinum and nicolle. Normal visualized pulmonary arteries. Normal visualized aortic arch and descending thoracic aorta. Normal visualized thoracic spine. Normal visualized ribs, clavicles, and shoulders. There is no demonstrated abnormality of the visualized soft tissue structures of the upper abdomen. RAD/Chest 1 View (Portable) IMPRESSION: Normal x-ray examination of the chest. Electronically Signed: Mauricio Ellison MD at 12:04 EDT ,
[2023-06-09 11:58] LABS: Absolute Lymphocyte Count 0.95 X10^3/uL (0.83-4.51); Basophil# 0.06 X10^3/uL; Basophil% 1.6 % (0-1); Eosinophil# 0.32 X10^3/uL; Eosinophils% 8.5 % (0-5); Hematocrit 40.8 % (40-54); Hemoglobin 14.5 g/dL (13.0-16.5); Lymphocyte # 0.95 X10^3/ul (0.83-4.51); Lymphocyte % 25.1 % (19-41); Mean Corp Hgb Conc 35.5 g/dL (32-36); Mean Corpuscular Volume 84.5 fL (80-94); Mean Platelet Vol. 9.5 fl (6.2-12.0); Monocyte# 0.45 X10^3/uL; Monocyte% 11.9 % (0-10); NRBC Flagged by Analyzer 0 % (0-5); Neutrophil # 1.98 X10^3/uL (2.7-7.7); Neutrophil % 52.4 % (47-70); Platelet Count 218 K/mm3 (150-450); RBC Distribution Width CV 12.6 % (11.6-14.6); RBC Distribution Width SD 38.3 fl (35.1-43.9); Red Blood Count 4.83 M/mm3 (4.6-6.2); White Blood Count 3.8 K/mm3 (4.4-11.0)
[2023-06-09 12:12] LABS: Anion Gap 4 (5-15); BUN 14 mg/dL (7-18); BUN/Creat Ratio 16.6 RATIO (10-20); Calcium,Total 9.1 mg/dL (8.5-10.1); Chloride 104 mmol/L (98-107); Creatinine, Serum 0.84 mg/dL (0.70-1.30); EST Glomerular Filtration Rate 104 mL/min (>60); Est Glom Filt Rate - Afr Amer 126 mL/min (>60); Glucose 105 mg/dL (74-106); Potassium 3.7 mmol/L (3.5-5.1); Sodium Level 138 mmol/L (136-145); Troponin-I HS 3 pg/mL (3.0-78.0)
[2023-06-09 12:13] LABS: D-Dimer Quantitative (DVT/PE) < 0.27 FEU/ug/m (0.27-0.49)
[2023-06-09 12:20] LABS: BNP,B-Type NATRIURETIC PEPTIDE 2.6 pg/mL (0-100)
== END 2023-06-09 12:57 | disposition home or self-care (01) ==
PROVIDERS: Emergency Provider Emergency Medicine; PCP Family Medicine; Visit Provider Emergency Medicine
DX: R07.9 Chest pain, unspecified (principal); K21.9 Gastro-esophageal reflux disease without esophagitis; R05.9 Cough, unspecified; R09.89 Other specified symptoms and signs involving the circulatory and respiratory systems; J45.909 Unspecified asthma, uncomplicated; F79 Unspecified intellectual disabilities; Z79.899 Other long term (current) drug therapy
CPT/HCPCS: 71045; 80048; 83880; 84484; 85025; 85379; 93005; 99284; A4216

== ENCOUNTER → 2023-09-18 | Outpatient (CLI) | payer MEDICARE, MEDICAID, SELFPAY ==
--- NOTE | 2023-09-18 15:55 | MRI_ITS ---
STUDY: MRI BRAIN WITH AND WITHOUT CONTRAST REASON FOR EXAM: Male, 47 years old. NEUROFIBROMATOSIS, MIGRAINE W/O AURA TECHNIQUE: Standardized multiplanar fat and water weighted pulse sequences were obtained. IV 14ML CLARISCAN was administered for the contrast portion of the examination. COMPARISON: 04/11/2019 FINDINGS: Normal size of the ventricles and extra-axial spaces for the patient''s age. Normal white matter tracts of the supratentorial brain. There is no evidence for recent intracranial ischemia or other cause of cytotoxic edema on diffusion weighted imaging (DWI). Normal T2* images of the brain without demonstrated susceptibility artifact. There is no demonstrated hemosiderin stain. Normal bilateral basal ganglia. Normal thalami. There is no extra-axial fluid accumulation. Normal flow voids within the major intracranial circulation suggesting patency by spin echo criteria. Normal venous enhancement. There is no enhancing intra-axial or extra-axial abnormality. Normal sella turcica, pituitary gland, infundibular stalk, optic chiasm and hypothalamus. Normal tectal plate and pineal gland. Normal midbrain, mindy and medulla. Normal cerebellum. Normal basal cisterns. Normal bilateral temporal bones. Normal bilateral internal auditory canals. No demonstrated orbital abnormality, within the constraints of a routine brain study. Normal visualized paranasal sinuses. Normal calvarium and skull base. No change in T1 and T2 isointense lesion of the left frontal scalp soft tissues consistent with known neurofibromatosis. Normal visualized upper cervical spine. MRI/Brain W/WO Contrast IMPRESSION: Normal unenhanced and enhanced MRI of the brain. Electronically Signed: Frantz Cr MD at 20:46 EDT ,
== END | disposition home or self-care (01) ==
LOC: MRI 15:38
PROVIDERS: PCP Family Medicine; Referring Provider Physician Assistant; Visit Provider Physician Assistant
DX: G43.009 Migraine without aura, not intractable, without status migrainosus (principal); Q85.00 Neurofibromatosis, unspecified
CPT/HCPCS: 70553; A9575

== ENCOUNTER 2023-10-16 11:28 | Emergency (ER) | payer MEDICARE, MEDICAID, SELFPAY ==
[2023-10-16 11:28] VITALS: BP 158/95; PULSE 90; RESP 16; TEMP 36.6; O2SAT 99; BMI 21.3
--- NOTE | 2023-10-16 11:48 | EKG12_ITS ---
Test Reason : CP Blood Pressure : / mmHG Vent. Rate : 082 BPM Atrial Rate : 082 BPM P-R Int : 154 ms QRS Dur : 088 ms QT Int : 360 ms P-R-T Axes : 066 102 034 degrees QTc Int : 420 ms Sinus rhythm with Premature supraventricular complexes Possible Right ventricular hypertrophy Abnormal ECG Confirmed by HEATHER GREEN, ELIJAH ([id number]), editor sound CARLO ACHARYA ([id number]) on 10/21/2023 12:21:52 PM Referred By: PAULINE Confirmed By:ELIJAH ROMERO MD
--- NOTE | 2023-10-16 11:49 | ED.VIS.CHEST ---
HPI History of Present Illness Chief Complaint: Chest Pain Narrative Narrative: 48-year-old male presents with his father because of chest pain that he experienced approximately 1 hour ago. He has past medical history of asthma and states he awoke from sleep about an hour ago with a pressure sensation on his chest that is nonradiating. He states it feels like someone sitting on his chest. He denies any fevers or chills, no cough. No shortness of breath or diaphoresis. He denies any DVT or PE risk factors as well. States this feels different than any chest pain that he has had in the past. It does not feel like his asthma exacerbations. Father states that there is history of early [place] in the family. [facility] Medical History Asthma MRDD Neurofibromatosis Home Medications albuterol sulfate 90 mcg/actuation aerosol inhaler (Ventolin HFA) 1 - 2 puff inhalation Q4H PRN PRN Wheezing 06/21/14 [History Last Taken Unknown] albuterol sulfate 2.5 mg/3 mL (0.083 %) solution for nebulization 2.5 mg inhalation Q6H PRN PRN Sob &/Or Wheezing 10/19/18 [History Last Taken Unknown] fluticasone propionate 44 mcg/actuation HFA aerosol inhaler (Flovent HFA) 2 puff inhalation BID 10/19/18 [History Last Taken Unknown] fluticasone propionate 50 mcg/actuation nasal spray,suspension 2 spray DAILY 10/19/18 [History Last Taken Unknown] cetirizine 10 mg capsule (Zyrtec) 10 mg PO DAILY allergies 10/20/18 [History Last Taken 10/19/18] Allergy/AdvReac Type Severity Reaction Status Date / Time No Known Allergies Allergy Verified 10/16/23 11:28 Social History Smoking Status: Never smoker ROS ROS ED ROS Narrative Constitutional: No fever, no chills. HEENT: No sore throat. No neck pain. No loss of vision. No rhinorrhea. Cardiovascular: Positive chest pressure/chest pain. No palpitations. No pedal edema. Respiratory: No cough, no shortness of breath. Abdominal: No abdominal pain. No nausea. No vomiting. Genitourinary: No dysuria. No hematuria. Musculoskeletal: No myalgias. No arthralgias. Neurologic: No headaches. No dizziness. No lightheadedness. Skin: No rash. No change in color. Psychiatric: No depression. No anxiety. EXAM Physical Exam Narrative Exam Narrative: Afebrile. Vital signs noted. HEENT: Normocephalic. Atraumatic. PERRL, EOMI. Neck soft and supple. No point tenderness or step off. Cardiovascular: Regular rate and rhythm. No murmurs, rubs, or gallops appreciated. Respiratory: No tachypnea. Lungs clear to auscultation bilaterally. Gastrointestinal: Abdomen soft, nontender, with normoactive bowel sounds. No rebound or guarding. Neurological: Awake. Alert. Nonfocal, nonlateralizing. Skin: No rash. Normal color. No pallor. Musculoskeletal: No pedal edema. Full range of motion extremities. Const Vital Signs: 10/16/23 11:28 10/16/23 11:46 Temperature 97.8 F Temperature Source Temporal Pulse Rate 90 Respiratory Rate 16 Respiratory Effort Normal Non-Labored Blood Pressure 158/95 H Blood Pressure Mean 116 Pulse Ox 99 Oxygen Delivery Method Room Air Heart Score History: Slightly/Non-Suspicious ECG: Normal Age: >45 - <65 years Risk Factors: 1 or 2 Risk Factors Score: 2 MDM MDM MDM Narrative Medical decision making narrative: In the differential diagnosis is acute coronary syndrome versus pulmonary embolism versus aortic dissection versus pneumonia and asthma exacerbation. I have low suspicion for aortic dissection because he does not have any tearing back pain, or back pain whatsoever, and no real risk factors. He is PERC negative here in the emergency department with a normal heart rate and no risk factors for pulmonary embolism. Chest pain work-up was pursued. I did not administer aspirin because he has history of GI bleed. EKG was obtained and interpreted by myself as normal sinus rhythm with premature supraventricular complexes. No evidence of STEMI. I reviewed his laboratory work from today and he has a normal white count of 8.9, hemoglobin normal at 14.9, platelet count normal at 235. D-dimer is less than 0.27 so I have low suspicion for pulmonary embolism or aortic dissection. Electrolyte panel is grossly unremarkable with a normal sodium of 138 and potassium normal at 3.6, BUN normal at 9 with creatinine 0.81. Glucose is appropriately elevated at 118 with a normal anion gap of 7. His initial high-sensitivity troponin is 4 with 2-hour repeat at 5, for negative delta troponin of 1. Chest x-ray in 1 view shows my interpretation no evidence of an acute process, no pneumothorax or pneumonia. I reviewed the radiology report which confirms my independent interpretation. This point in time, I feel he can be discharged to follow-up with his primary care provider. Return instructions to the emergency department were reviewed. Disposition is discharged home in stable condition. History & Record Review Discussion w/independent historian: Patient Additional record(s) reviewed:: Prior ED visit and Prior labs Lab Data Attestation: I reviewed the patient's lab results. Labs: Laboratory Results - last 24 hr 10/16/23 10/16/23 11:40 13:40 WBC 8.9 RBC 5.05 Hgb 14.9 Hct 42.9 MCV 85.0 MCH 29.5 MCHC 34.7 RDW Std Deviation 39.8 RDW Coeff of Ivet 12.9 Plt Count 235 MPV 9.8 Immature Gran % (Auto) 0.400 Neut % (Auto) 79.0 H Lymph % (Auto) 10.5 L [place] % (Auto) 7.2 Eos % (Auto) 2.1 Baso % (Auto) 0.8 Absolute Neuts (auto) 7.0 Absolute Lymphs (auto) 0.93 Nucleated RBC % 0 D-Dimer Quant (PE/DVT) < 0.27 L Sodium 138 Potassium 3.6 Chloride 104 Carbon Dioxide 27.0 Anion Gap 7 BUN 9 Creatinine 0.81 Estim Creat Clear Calc 110.67 Est GFR (MDRD) Af Amer 131 Est GFR (MDRD) Non-Af 109 BUN/Creatinine Ratio 11.1 Glucose 118 H Calcium 8.9 Troponin I High Sens 4 5 Radiography Chest X-Ray - ED: 1 View, Read by ED Physician and Read by Radiologist Diagnostic Testing: Clinical Impression(s) from Imaging Studies Chest X-Ray 10/16/23 11:53 IMPRESSION: Normal x-ray examination of the chest. Electronically Signed: Mauricio Ellison MD at 12:09 EST , Discharge Plan Triage Chief Complaint: Chest Pain ED Provider: Jonn Bush Dx/Rx/DC Orders Clinical Impression: Chest pressure, Chest pain Instructions: ED Chest Pain, Uncertain Cause Prescriptions: No Action albuterol sulfate [Ventolin HFA] 1 INHALER inhaler 1 - 2 puff inhalation Q4H PRN PRN (Reason: Wheezing) albuterol sulfate 2.5 MG/3 ML solution for nebulization 2.5 mg inhalation Q6H PRN PRN (Reason: Sob &/Or Wheezing) fluticasone propionate [Flovent HFA] 1 INHALER inhaler 2 puff inhalation BID fluticasone propionate 1 SPRAY spray,suspension 2 spray NASAL DAILY Zyrtec 10 MG capsule 10 mg PO DAILY Primary Care Provider: Nicholas Collins Referrals: Nicholas Collins MD [Primary Care Provider] - 3-5 Days if not improving Disposition Disposition: Home, Self Care
--- NOTE | 2023-10-16 11:53 | RAD_ITS ---
STUDY: X-RAY CHEST REASON FOR EXAM: Male, 48 years old. Chest pain TECHNIQUE: Single AP portable view of the chest. COMPARISON: Comparison is made with prior study dated June 09, 2023. FINDINGS: EKG electrodes are seen. The lungs are clear and expanded. There is no demonstrated pleural abnormality. Normal size heart. Normal mediastinum and nicolle. Normal visualized pulmonary arteries. Normal visualized aortic arch and descending thoracic aorta. Normal visualized thoracic spine. Normal visualized ribs, clavicles, and shoulders. There is no demonstrated abnormality of the visualized soft tissue structures of the upper abdomen. RAD/Chest 1 View (Portable) IMPRESSION: Normal x-ray examination of the chest. Electronically Signed: Mauricio Ellison MD at 12:09 EST ,
[2023-10-16 12:09] LABS: Absolute Lymphocyte Count 0.93 X10^3/uL (0.83-4.51); Basophil# 0.07 X10^3/uL; Basophil% 0.8 % (0-1); Eosinophil# 0.19 X10^3/uL; Eosinophils% 2.1 % (0-5); Hematocrit 42.9 % (40-54); Hemoglobin 14.9 g/dL (13.0-16.5); Lymphocyte # 0.93 X10^3/ul (0.83-4.51); Lymphocyte % 10.5 % (19-41); Mean Corp Hgb Conc 34.7 g/dL (32-36); Mean Corpuscular Hgb 29.5 pg (27.0-32.0); Mean Platelet Vol. 9.8 fl (6.2-12.0); Monocyte# 0.64 X10^3/uL; Monocyte% 7.2 % (0-10); NRBC Flagged by Analyzer 0 % (0-5); Neutrophil # 7.02 X10^3/uL (2.7-7.7); Platelet Count 235 K/mm3 (150-450); RBC Distribution Width CV 12.9 % (11.6-14.6); RBC Distribution Width SD 39.8 fl (35.1-43.9); Red Blood Count 5.05 M/mm3 (4.6-6.2); White Blood Count 8.9 K/mm3 (4.4-11.0)
[2023-10-16] MEDS: 0.9% Normal Saline (1000mL) 1,000 ML 150 ML IV (12:12)
[2023-10-16 12:26] LABS: Anion Gap 7 (5-15); BUN 9 mg/dL (7-18); BUN/Creat Ratio 11.1 RATIO (10-20); Calcium,Total 8.9 mg/dL (8.5-10.1); Chloride 104 mmol/L (98-107); Creatinine, Serum 0.81 mg/dL (0.70-1.30); EST Glomerular Filtration Rate 109 mL/min (>60); Est Glom Filt Rate - Afr Amer 131 mL/min (>60); Estimated Creatinine Clearance 110.67 ml/min; Glucose 118 mg/dL (74-106); Potassium 3.6 mmol/L (3.5-5.1); Sodium Level 138 mmol/L (136-145); Troponin-I HS (w/2H Reflex) 4 pg/mL (3.0-78.0)
[2023-10-16 12:41] LABS: D-Dimer Quantitative (DVT/PE) < 0.27 FEU/ug/m (0.27-0.49)
[2023-10-16 14:00] LABS: Reflex Troponin-HS? (from REC) Y
[2023-10-16 14:18] LABS: Troponin-I HS 5 pg/mL (3.0-78.0)
[2023-10-16 14:44] VITALS: BP 164/68; PULSE 74; RESP 18; O2SAT 99
== END 2023-10-16 14:45 | disposition home or self-care (01) ==
PROVIDERS: Emergency Provider Emergency Medicine; PCP Family Medicine; Visit Provider Emergency Medicine
DX: R07.89 Other chest pain (principal); J45.909 Unspecified asthma, uncomplicated
CPT/HCPCS: 71045; 80048; 84484; 85025; 85379; 93005; 96360; 96361; 99284; J7030; A4216

== ENCOUNTER 2024-01-10 12:26 | Emergency (ER) | payer MEDICARE, MEDICAID, SELFPAY ==
[2024-01-10 12:27] VITALS: BP 141/75; PULSE 87; RESP 16; TEMP 36.4; O2SAT 100; BMI 20.6
[2024-01-10 12:45] VITALS: BP 139/68; BP 140/72; BP 142/82; PULSE 78; PULSE 83; PULSE 89
--- NOTE | 2024-01-10 12:52 | EX.ED.DYSGE1 ---
HPI History of Present Illness Chief Complaint: Dizziness Detail of Chief Complaint: Dizziness which he describes as lightheadedness. Informant: patient Onset/Context/Timing Onset: Weeks (Last 2 weeks.) Context: Sudden Onset Timing: Intermittent Current Severity: Gone Maximum Severity: Mild Narrative Narrative: 48-year-old male history of neurofibromatosis. States he has had intermittent dizziness for the last 2 weeks. He describes as lightheadedness. Primarily with standing. Denies any nausea vomiting or diarrhea. No fever or chills. No recent head injury or trauma. Prior similar symptoms: No Recent Illness/Hospitalization: No PFSH PFSH Medical History Asthma MRDD Neurofibromatosis Home Medications albuterol sulfate 90 mcg/actuation aerosol inhaler (Ventolin HFA) 1 - 2 puff inhalation Q4H PRN PRN Wheezing 06/21/14 [History Last Taken Unknown] albuterol sulfate 2.5 mg/3 mL (0.083 %) solution for nebulization 2.5 mg inhalation Q6H PRN PRN Sob &/Or Wheezing 10/19/18 [History Last Taken Unknown] fluticasone propionate 44 mcg/actuation HFA aerosol inhaler (Flovent HFA) 2 puff inhalation BID 10/19/18 [History Last Taken Unknown] fluticasone propionate 50 mcg/actuation nasal spray,suspension 2 spray DAILY 10/19/18 [History Last Taken Unknown] cetirizine 10 mg capsule (Zyrtec) 10 mg PO DAILY allergies 10/20/18 [History Last Taken 10/19/18] Allergy/AdvReac Type Severity Reaction Status Date / Time No Known Allergies Allergy Verified 10/16/23 11:28 Social History Smoking Status: Never smoker ROS ROS ED ROS Narrative Denies recent illness. Review of Systems ROS Unobtainable: Denies due to encephalopathy Constitutional Constitutional ED: Denies chills or fever(s) Eyes Eyes: Denies blurry vision ENT ENT ED: Denies ear pain Cardiovascular Cardiovascular: Denies chest pain Respiratory/Chest Respiratory/Chest: Denies cough or dyspnea Gastrointestinal Gastrointestinal: Denies abdominal pain Genitourinary Genitourinary ED: Denies dysuria or hematuria Musculoskeletal Musculoskeletal: Denies arthralgias Integumentary Denies abscess or Abrasions Neurologic Neurologic: Denies paresthesias or weakness Psychiatric Psychiatric: Denies anxiety or depression Endocrine Endocrinology: Denies cold intolerance Hematologic/Lymphatic Hematologic/Lymphatic: Reports none Allergic/Immunologic Allergic/Immunologic ED: Denies mouth swelling, tongue swelling or urticaria EXAM Physical Exam Narrative Exam Narrative: Well-appearing 48-year-old male. Vital signs stable afebrile. HEENT exam unremarkable. Pupils round react to light. No facial droop. Normal speech. Neck nontender no lymphadenopathy. Lungs clear to auscultation bilaterally. Heart regular rhythm rate about 90 no murmur. Chest wall and ribs nontender. Abdomen soft nontender. Moving all 4 extremities. 5 of 5 electrical contacts adjuster strength. Dorsi plantarflexion intact. Calves are nontender without edema or cords. Neurologically he is awake alert. Answering questions following commands. Normal electrical contacts adjuster strength bilaterally. Fingertip to nose [id number] within normal limits. NIH is 0. Const Vital Signs: 01/10/24 12:27 01/10/24 12:45 01/10/24 12:51 Temperature 97.6 F L Temperature Source Temporal Pulse Rate 87 Pulse Rate [Lying] 78 Pulse Rate [Sitting (for 1 minute prior to obtaining)] 83 Pulse Rate [Standing (for 1 minute prior to obtaining)] 89 Respiratory Rate 16 Respiratory Effort Non-Labored Respiratory Pattern Normal Blood Pressure 141/75 H Blood Pressure [Lying] 140/72 H Blood Pressure [Sitting (for 1 minute prior to obtaining)] 142/82 H Blood Pressure [Standing (for 1 minute prior to obtaining)] 139/68 H Blood Pressure Mean 97 Blood Pressure Mean [Lying] 94 Blood Pressure Mean [Sitting (for 1 minute prior to obtaining)] 102 Blood Pressure Mean [Standing (for 1 minute prior to obtaining)] 91 Pulse Ox 100 Oxygen Delivery Method Room Air Positive well nourished and well developed; Negative for obese, cachectic, contractures or unkempt General Appearance ED: well developed and NAD; Negative for unkempt, cachectic, contractures, cyanotic, diaphoretic or pallor Nutritional Appearance: Negative for cachectic or obese HEENT Reports moist mucous membranes; Denies dry mucous membranes Negative for trauma or tenderness Mouth ED: No dry mucous membranes Mouth: No dry mucous membranes Eyes PERRL and EOMs intact bilaterally General Eye ED: Negative for pale conjunctiva, scleral icterus or other Neck no lymphadenopathy, supple and no JVD General: Negative for tenderness Lymph Lymphatic: Negative for other Chest Wall inspection of chest normal and palpation of chest normal Chest: Negative for other Resp normal respiratory effort and clear to auscultation bilaterally Effort and Inspection: Negative for retractions or pain with movement Auscultation: Negative for rales, rhonchi, wheezes or diminished lung sounds Cardio regular rate, regular rhythm, S1 normal heart sound, S2 normal heart sound and no murmurs Palpation: Negative for palpable S3 or palpable S4 Rate: Negative for bradycardia, tachycardic or other Rhythm: Negative for abnormal rhythm GI normal to inspection, nondistended, normoactive bowel sounds, non-tender, non-distended and no masses Inspection: Negative for abdominal distention Auscultation: normoactive bowel sounds Palpation: soft; Negative for tender, guarding or rebound tenderness present Back/Spine no CVA tenderness General Back: Negative for CVA tenderness Cervical Spine: Negative for cervical spine tenderness Thoracic Spine / Upper Back: Negative for thoracic spinal tenderness or paraspinal muscle tenderness Lumbar Spine / Lower Back: Negative for lumbar spinal tenderness Extremity normal to inspection General Extremety ED: Negative for edema, tenderness or other findings General Extremity: Negative for edema or other findings Neuro oriented x3 and CN's II-XII intact bilaterally Sensorium / Orientation: alert; Negative for orientation impaired, lethargic or stuporous Motor Exam: strength 5/5 throughout Psych mental status grossly normal Appearance: Negative for unkempt Attitude: No agitated Mood & Affect: Negative for depressed, anxious or tearful Skin no rashes or lesions noted, no wounds and skin turgor normal General Skin Exam: Negative for jaundice or pallor Lesions: No lesion noted Rashes: No rashes noted Trauma: Negative for abrasion Wounds: Negative for wounds noted MDM MDM MDM Narrative Medical decision making narrative: 48-year-old male describes 2 weeks of dizziness primarily lightheadedness with standing and sounds like orthostatic hypotension possibly. He had a recent CT and MRI of his brain which were unremarkable in the last 6 months or so. He is got a normal neurologic exam I do not think he needs any imaging. Orthostatic vital signs will be obtained. Will check a CBC and chemistry. History & Record Review Discussion w/independent historian: Patient Additional record(s) reviewed:: Prior inpatient record, Prior outpatient record, Prior ED visit and Prior labs Lab Data Attestation: I reviewed the patient's lab results. Lab results narrative: CBC unremarkable white count of 3. H&H 13 and 39. Platelets 224. Chemistries show a gap of 8. Normal BUN and creatinine. Glucose 112. Orthostatic vital signs are normal. Labs: Laboratory Results - last 24 hr 01/10/24 13:04 WBC 3.9 L RBC 4.58 L Hgb 13.6 Hct 39.1 L MCV 85.4 MCH 29.7 MCHC 34.8 RDW Std Deviation 39.3 RDW Coeff of Ivet 12.7 Plt Count 224 MPV 9.9 Immature Gran % (Auto) 0.500 Neut % (Auto) 56.5 Lymph % (Auto) 25.9 [place] % (Auto) 11.0 H Eos % (Auto) 4.6 Baso % (Auto) 1.5 H Absolute Neuts (auto) 2.2 Absolute Lymphs (auto) 1.01 Nucleated RBC % 0 Sodium 141 Potassium 3.9 Chloride 106 Carbon Dioxide 27.0 Anion Gap 8 BUN 14 Creatinine 0.86 Estim Creat Clear Calc 100.90 Est GFR (MDRD) Af Amer 123 Est GFR (MDRD) Non-Af 101 BUN/Creatinine Ratio 16.3 Glucose 112 H Calcium 9.1 Discharge Plan Triage Chief Complaint: Dizziness ED Provider: William Oliveros Dx/Rx/DC Orders Clinical Impression: Dizziness Instructions: ED Dizziness, Uncertain Cause Prescriptions: No Action albuterol sulfate [Ventolin HFA] 1 INHALER inhaler 1 - 2 puff inhalation Q4H PRN PRN (Reason: Wheezing) albuterol sulfate 2.5 MG/3 ML solution for nebulization 2.5 mg inhalation Q6H PRN PRN (Reason: Sob &/Or Wheezing) fluticasone propionate [Flovent HFA] 1 INHALER inhaler 2 puff inhalation BID fluticasone propionate 1 SPRAY spray,suspension 2 spray NASAL DAILY Zyrtec 10 MG capsule 10 mg PO DAILY Primary Care Provider: Nicholas Collins Referrals: Nicholas Collins MD [Primary Care Provider] - 1 Week if not improving Activity Restrictions/Additional Instructions: Plenty of fluids and rest. Follow-up with your doctor if not improving. Your labs and vital signs were all good. Disposition Disposition: Home, Self Care
[2024-01-10 13:10] LABS: Absolute Lymphocyte Count 1.01 X10^3/uL (0.83-4.51); Absolute Neutrophil Count 2.2 X10^3/uL (2.0-7.7); Basophil# 0.06 X10^3/uL; Basophil% 1.5 % (0-1); Eosinophil# 0.18 X10^3/uL; Eosinophils% 4.6 % (0-5); Hematocrit 39.1 % (40-54); Hemoglobin 13.6 g/dL (13.0-16.5); Lymphocyte # 1.01 X10^3/ul (0.83-4.51); Lymphocyte % 25.9 % (19-41); Mean Corp Hgb Conc 34.8 g/dL (32-36); Mean Corpuscular Hgb 29.7 pg (27.0-32.0); Mean Corpuscular Volume 85.4 fL (80-94); Mean Platelet Vol. 9.9 fl (6.2-12.0); Monocyte# 0.43 X10^3/uL; NRBC Flagged by Analyzer 0 % (0-5); Neutrophil % 56.5 % (47-70); Platelet Count 224 K/mm3 (150-450); RBC Distribution Width CV 12.7 % (11.6-14.6); RBC Distribution Width SD 39.3 fl (35.1-43.9); Red Blood Count 4.58 M/mm3 (4.6-6.2); White Blood Count 3.9 K/mm3 (4.4-11.0)
--- OUTSIDE RECORDS SUMMARY | 2024-01-10 13:11 | XMS RPT_ITS | CCD ---
Author Name Unknown Address [address] [place] [address] Organization [facility] Care Team Providers Care Commercial Construction Superintendent Name Role Phone Mercedes Zaman MD Primary Care Provider MERCEDES ZAMAN Primary Care Unavailable MERCEDES ZAMAN Referring Unavailable REYNA HEBERT Referring Unavailable MERCEDES ZAMAN Primary Care Unavailable MERCEDES ZAMAN Attending Unavailable REYNA HEBERT Referring Unavailable MERCEDES ZAMAN Primary Care Unavailable REYNA HEBERT Referring Unavailable REYNA HEBERT Attending Unavailable MERCEDES ZAMAN Primary Care Unavailable MERCEDES ZAMAN Primary Care Unavailable REYNA HEBERT Attending Unavailable MERCEDES ZAMAN Primary Care Unavailable MERCEDES ZAMAN Primary Care Unavailable MERCEDES ZAMAN Referring Unavailable MERCEDES ZAMAN Primary Care Unavailable MERCEDES ZAMAN Referring Unavailable MERCEDES ZAMAN Primary Care Unavailable MERCEDES ZAMAN Referring Unavailable MERCEDES ZAMAN Primary Care Unavailable MERCEDES ZAMAN Referring Unavailable Allergies Allergy Classification Reported Allergen(s) Allergy Type Date of Onset Reaction(s) Facility (1 source) Seasonal allergy; Translations: [SEASONAL ALLERGIES] Propensity to adverse reactions (disorder) 4 [facility] (1 source) OTHER; Translations: [OTHER] Propensity to adverse reactions (disorder) 6 [facility] Medications Current Medications Medication Drug Class(es) Dates Sig (Normalized) Sig (Original) iv contrast (will be provided with radiology test) (1 source) Start: 06-15-2023 End: 06-16-2023 inject 1 dose intravenously once iv contrast (will be provided with radiology test) MRI Brain Inject, intravenously, once for 1 dose.No IV access, insert saline lock prior to beginning of sedation, infusion, injection of imaging exam.Discontinue saline lock post exam. If Pt. has a central line or IVAD, may access for administration according to line specific nursing protocol.Once exam is complete flush line and de-access according to line specific nursing protocol in the MR contrast administration guidelines link 1 Each 0 06/15/2023 06/16/2023 Active Completed/Discontinued Medications Medication Drug Class(es) Dates Sig (Normalized) Sig (Original) albuterol 0.83 mg/ml inhalation solution (17 sources) beta2-Adrenergic Agonist Start: 06-22-2018 End: 06-15-2023 take 2 puff(s) by inhalation every four hours as needed for cough albuterol HFA (PROVENTIL HFA, VENTOLIN HFA) 90 mcg/actuation inhaler 2 puffs every four hours as needed for cough, wheezing , chest tightness or shortness of breath 1 Each 11 06/15/2023 Active Problems Active Problems Problem Classification Problem Date Documented Date Episodic/Chronic Asthma (7 sources) Uncomplicated mild persistent asthma; Translations: [Mild persistent asthma, uncomplicated] Onset: 09-11-2015 09-11-2015 Chronic Developmental disorders (8 sources) Intellectual disability; Translations: [Unspecified intellectual disabilities] 11-25-2021 Chronic Diabetes mellitus without complication (1 source) Other abnormal glucose; Translations: [Elevated glucose] Onset: 12-07-2023 Episodic Disorders of lipid metabolism (9 sources) Mixed hyperlipidemia; Translations: [Mixed hyperlipidemia] Onset: 09-11-2015 11-25-2021 Chronic Esophageal disorders (9 sources) Gastroesophageal reflux disease without esophagitis; Translations: [Gastro-esophageal reflux disease without esophagitis] Onset: 12-20-2018 12-20-2018 Chronic Essential hypertension (1 source) Essential (primary) hypertension; Translations: [Hypertension, essential] Onset: 12-07-2023 Chronic Headache; including migraine (8 sources) Migraine without aura, not refractory ; Translations: [Migraine without aura, not intractable, without status migrainosus] Onset: 01-18-2016 01-18-2016 Chronic Immunizations and screening for infectious disease (2 sources) Contact with or exposure to other viral diseases; Translations: [Close exposure to COVID-19 virus] Onset: 12-07-2023 Episodic Inflammation; infection of eye (except that caused by tuberculosis or sexually transmitteddisease) (1 source) Acute atopic conjunctivitis of bilateral eyes; Translations: [Acute atopic conjunctivitis, bilateral] 06-15-2023 Episodic Nervous system congenital anomalies (9 sources) Neurofibromatosis syndrome; Translations: [Neurofibromatosis, unspecified] Onset: 02-26-2009 07-18-2019 Chronic Nonspecific chest pain (1 source) Chest pain, unspecified; Translations: [Chest pain, unspecified type] Onset: 12-21-2023 Episodic Other non-traumatic joint disorders (1 source) Pain in elbow; Translations: [Pain in left elbow] Episodic Other upper respiratory disease (7 sources) Allergic rhinitis; Translations: [Allergic rhinitis, unspecified] Onset: 03-08-2009 09-11-2015 Chronic Residual codes; unclassified (1 source) Left before being seen; Translations: [Procedure and treatment not carried out due to patient leaving prior to being seen by health care provider] Episodic Past or Other Problems Problem Classification Problem Date Documented Date Episodic/Chronic Genitourinary symptoms and ill-defined conditions (7 sources) Bilirubinuria; 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] Onset: 12-29-2016 12-29-2016 Episodic Other aftercare (7 sources) Drug therapy finding; Translations: [Other jail (current) drug therapy] Onset: 12-20-2018 12-20-2018 Episodic Other aftercare (7 sources) Patient encounter status; Translations: [Other jail (current) drug therapy] Onset: 06-12-2020 06-12-2020 Episodic Residual codes; unclassified (7 sources) FH: premature coronary heart disease; Translations: [Family history of ischemic heart disease and other diseases of the circulatory system] Onset: 09-29-2018 09-29-2018 Episodic Residual codes; unclassified (7 sources) Family history of cancer of colon; Translations: [Family history of malignant neoplasm of digestive organs] Onset: 09-29-2018 09-29-2018 Episodic Residual codes; unclassified (7 sources) Family history of congenital anomaly of cardiovascular system; Translations: [Family history of ischemic heart disease and other diseases of the circulatory system] Onset: 09-29-2018 09-29-2018 Episodic Residual codes; unclassified (1 source) Family history of ischemic heart disease and other diseases of the circulatory system; Translations: [Family history of early CAD] Onset: 09-29-2018 Episodic Results Test Name Value Interpretation Reference Range Facil ity Vital Signs Date Time Vital Sign Value Performing Clinician Rico correa 06-15-2023 09:11-0400 Body height 174 cm Reyna Hebert PA-C Work Phone: [facility] 06-15-2023 09:11-0400 Body temperature 97.7 [degF] Reyna LOPES-C Work Phone: [facility] 06-15-2023 09:11-0400 Body weight 66.68 kg Reyna Hebert PA-C Work Phone: [facility] 06-15-2023 09:11-0400 Diastolic blood pressure 76 mm[Hg] Reyna LOPES-C Work Phone: [facility] 06-15-2023 09:11-0400 Heart rate 70 /min Reyna LOPES-C Work Phone: [facility] 06-15-2023 09:11-0400 Respiratory rate 16 /min Reyna LOPES-C Work Phone: [facility] 06-15-2023 09:11-0400 Systolic blood pressure 120 mm[Hg] Reyna LOPES-C Work Phone: [facility] 08-12-2022 14:49-0400 Body temperature 98.6 [degF] Tonja Praisler-Wood AUTOMOTIVE WORKER.RECHECKER Work Phone: [facility] 08-12-2022 14:49-0400 Body weight 65.86 kg Tonja Praisler-Wood AUTOMOTIVE WORKER.RECHECKER Work Phone: [facility] 08-12-2022 14:49-0400 Diastolic blood pressure 72 mm[Hg] Tonja Praisler-Wood AUTOMOTIVE WORKER.RECHECKER Work Phone: [facility] 08-12-2022 14:49-0400 Heart rate 80 /min Tonja Praisler-Wood AUTOMOTIVE WORKER.RECHECKER Work Phone: [facility] 08-12-2022 14:49-0400 Respiratory rate 18 /min Tonja Praisler-Wood AUTOMOTIVE WORKER.RECHECKER Work Phone: [facility] 08-12-2022 14:49-0400 SaO2% (BldA) [Mass fraction] 99 % Tonja Gonzalez AUTOMOTIVE WORKER.RECHECKER Work Phone: [facility] 08-12-2022 14:49-0400 Systolic blood pressure 124 mm[Hg] Tonja Gonzalez AUTOMOTIVE WORKER.RECHECKER Work Phone: [facility] 07-25-2022 11:32-0400 Body temperature 98.6 [degF] Richard Powell MD Work Phone: [facility] 07-25-2022 11:32-0400 Body weight 67.31 kg Richard Powell MD Work Phone: [facility] 07-25-2022 11:32-0400 Diastolic blood pressure 74 mm[Hg] Richadr Powell MD Work Phone: [facility] 07-25-2022 11:32-0400 Heart rate 76 /min Richard Powell MD Work Phone: [facility] 07-25-2022 11:32-0400 Respiratory rate 16 /min Richard Powell MD Work Phone: [facility] 07-25-2022 11:32-0400 SaO2% (BldA) [Mass fraction] 98 % Richard Powell MD Work Phone: [facility] 07-25-2022 11:32-0400 Systolic blood pressure 116 mm[Hg] Richard Powell MD Work Phone: [facility] Encounters Encounter Date Encounter Type Care Provider Facility Start: 12-21-2023 End: 12-21-2023 ambulatory MERCEDES ZAMAN Facility:[facility] Start: 12-17-2023 End: 12-17-2023 ambulatory MERCEDES ZAMAN Facility:[facility] Start: 12-07-2023 End: 12-08-2023 ambulatory MERCEDES ZAMAN Facility:[facility] Start: 09-21-2023 Telephone encounter Mercedes Zaman MD Work Phone: [facility] Procedures Date Procedure Procedure Detail Performing Clinician Start: 06-16-2023 Lipid 1996 panel - S fareed or Plasma Reyna Hebert PA-C Work Phone: Start: 09-23-2019 Adult depression scr eening assessment Richard Powell MD Work Phone: Start: 11-08-2018 Colonoscopy Richard barakat MD Work Phone: Plan of Treatment Date Care Activity Detail Author Start: 2041 PNEUMOCOCCAL (3 - PP SV23 if available, else PCV20) PNEUMOCOCCAL (3 - PPSV23 if available, else PCV20) [facility] Start: 2041 PNEUMOCOCCAL (3 - PP SV23 or PCV20) PNEUMOCOCCAL (3 - PPSV23 or PCV20) [facility] Start: 2041 Pneumococcal vaccination Pneum ococcal Vaccine (3 - PPSV23 or PCV20) [facility] Start: 06-16-2028 Lipid 1996 panel - S fareed or Plasma Lipid Screening [facility] Start: 06-16-2026 Diabetes Screening Diabetes Screenin g [facility] Start: 09-11-2025 Urine microalbumin profile [facility] Start: 07-18-2024 LIPID SCREEN LIPID SCREEN [facility] Start: 06-15-2024 ANNUAL PCP TEAM CHUTE BOSS DAVID DISEASE VISIT ANNUAL PCP TEAM CHRONIC DISEASE VISIT [facility] Start: 06-15-2024 COVID-19 VACCINE (#1) COVID-19 VACCI NE (#1) [facility] Immunizations Immunization Date Immunization Notes Care Provider Fa cili 07-16-2020 influenza, seasonal, injectable Richard Powell MD Work Phone: [facility] 07-16-2020 pneumococcal polysaccharide vaccine, 23 valent Richard Powell MD Work Phone: [facility] 07-16-2020 influenza virus vacc ine, unspecified formulation Reyna Hebert PA-C Work Phone: [facility] 09-23-2019 influenza, injectabl e, quadrivalent, contains preservative Richard Powell MD Work Phone: [facility] 09-12-2018 influenza, seasonal, injectable Richard Powell MD Work Phone: [facility] 06-22-2018 pneumococcal polysaccharide vaccine, 23 valent Ricahrd Powell MD Work Phone: [facility] 12-12-2016 pneumococcal conjuga te vaccine, 13 valent Richard Powell MD Work Phone: [facility] 09-11-2015 influenza, injectabl e, quadrivalent, contains preservative Richard Powell MD Work Phone: [facility] 09-11-2015 tetanus toxoid, redu natty diphtheria toxoid, and acellular pertussis vaccine, adsorbed Richard Powell MD Work Phone: [facility] 09-06-2014 influenza, seasonal, injectable Richard Powell MD Work Phone: [facility] Work Phone: 08-16-2011 influenza virus vacc ine, unspecified formulation Richard Powell MD Work Phone: [facility] Work Phone: 10-08-2010 influenza virus vacc ine, unspecified formulation Richard Powell MD Work Phone: [facility] 09-04-2009 influenza virus vacc ine, unspecified formulation Richard Powell MD Work Phone: [facility] 09-05-2008 influenza virus vacc ine, unspecified formulation Richard Powell MD Work Phone: [facility] 10-04-2007 influenza virus vacc ine, unspecified formulation Richard Powell MD Work Phone: [facility] Work Phone: 09-24-2006 influenza virus vacc ine, unspecified formulation Richard Powell MD Work Phone: [facility] Work Phone: 07-16-2006 pneumococcal polysaccharide vaccine, 23 valent Richard Powell MD Work Phone: [facility] Work Phone: 10-01-2005 tetanus and diphther ia toxoids, adsorbed, preservative free, for adult use (2 Lf of tetanus toxoid and 2 Lf of diphtheria toxoid) Richard Powell MD Work Phone: [facility] Work Phone: Payers Date Payer Category Payer Medicare MEDICARE MEDICAR E A AND B [id number] 2010-Present [phone] [address] [address] [place] [address] Medicare [id number] 2010 Medicare [id number] 2002 Medicaid [place] [id number] 2002-Present [phone] [address] [place] [address] Medicaid [id number] 2002 Medicaid [id number] Social History Date Type Detail Facility Tobacco smoking stat [facility] Never smoked tobacco [facility] Start: 07-25-2022 End: 06-15-2023 Alcohol intake Current non-drinker of alcohol (finding) [facility] Start: 1975 Sex Assigned At Not on file [facility] Start: 07-15-2022 End: 07-25-2022 Exposure to SARS-CoV-2 (event) Not sure [facility] Work Phone: Start: 05-25-2023 End: 06-10-2023 History of Social function [facility] Start: 05-25-2023 End: 06-10-2023 Tobacco use panel [facility] Adult Depression Screening Assessment 0 [facility] Clinical Notes 02-25-2006 to 12-21-2023 Telephone Encounter - Susanne Cheney MA - 09/21/2023 9:25 AM EDTTelephone Encounter - Mercedes Zaman MD - 09/21/2023 8:27 AM Reyna Bentley PA- C - 06/15/2023 9:22 AM EDT Note Date & Type Note Facility 12-21-2023 Note HNO ID: [id number] Author: TAMARA BOCANEGRA RN Service: ? Author Type: Registered Nurse Type: Progress Notes Filed: 12/21/2023 10:24 Note Text: RADIOLOGY SERVICE PROGRESS NOTE SERVICE DATE: 12/21/2023 SERVICE TIME: 08 PATIENT IDENTITY VERIFICATION COMPLETED USING TWO (2) METHODS: Patient confirmed name and Date of verbally. ALLERGIES AND MEDICATIONS REVIEWED BY: Tamara Bocanegra RN PROCEDURE TYPE: NM STRESS: 0.4 mg of Lexiscan was administered IV at 0835 over 10 Seconds by Tamara Bocanegra RN Reversal agent used:Nne LOT [id number] EXP 04/21 IV SITE: IV palced by nuclear tecnologist POST EXAM PIV STATUS: Discontinued by Office Assistant PATIENT DISCHARGED TO: Nuclear Medicine Department for post stress imaging A Diagnostic radioactive procedure has taken place, with no further precautions necessary other than routine body substance precautions. More information regarding radiation safety can be found using this link: [email or web address] 20Diagnostic%20Nuclear%20Medicin e%[email or web address] SIGNATURE: Tamara Bocanegra RN PATIENT NAME:Stacey Navarro DATE: 12/21/23 TIME: 10:21 AM [facility] 12-21-2023 Note HNO ID: [id number] Author: NICOLETTE JOHNSON RT(R) Service: Nuclear Medicine Author Type: Technologist Type: Progress Notes Filed: 12/21/2023 15:37 Note Text: RADIOLOGY SERVICE PROGRESS NOTE SERVICE DATE: 12/21/2023 SERVICE TIME: 07:10 AM PATIENT IDENTITY VERIFICATION COMPLETED USING TWO (2) STANDARD IDENTIFIERS: Name and Date of confirmed by patient verbally FALL SCREENING: Has the patient had 2 falls in the last year or 1 fall with injury or currently using an Ambulatory Assistive Device (Walker, Cane, Wheelchair, Crutches, etc.)? No PATIENT GENDER DATA: .male ALLERGIES: Reviewed and unchanged MEDICATIONS REVIEWED: No PATIENT RELEVANT IMPLANT DATA REVIEWED: Not Applicable CREATININE: Creatinine Date Value Ref Range Status 06/16/2023 0.78 0.73 - 1.22 mg/dL Final 12/20/2018 0.76 0.73 - 1.22 mg/dL Final 07/12/2016 0.83 0.70 - 1.40 mg/dL Final Estimated Glomerular Filtration Rate Date Value Ref Range Status 06/16/2023 111 >=60 mL/min/1.73m? Final Comment: Estimated Glomerular Filtration Rate (eGFR) is calculated using the 2020 CKD-EPI creatinine equation. This equation utilizes serum creatinine, sex, and age as parameters. The creatinine assay has traceable calibration to isotope dilution-mass spectrometry. Refer to KDIGO guidelines for clinical interpretation. In patients with unstable renal function, e.g. those with acute kidney injury, the eGFR may not accurately reflect actual GFR. eGFR- Date Value Ref Range Status 12/20/2018 >60 Final P.O.C.T. RESULTS: N/A December 21, [address] PERFORMED: No IV SITE: Ambulatory: A peripheral IV was started in the Left forearm with a Angio cath: 22 gauge. POST EXAM PIV STATUS: Discontinued PROCEDURE TYPE: NM Stress: 13.4 mCi [id number] was administered IV for Rest Imaging at 07:15 by Nicolette Johnson. 32.8 mCi [id number] was administered IV for Stress Imaging at 08:35 by Nicolette Johnson. ADMINISTRATION TIME: PATIENT DISCHARGED TO: Ambulatory patient, left PA department area. A Diagnostic radioactive procedure has taken place, with no further precautions necessary other than routine body substance precautions. More information regarding radiation safety can be found using this link: [email or web address] 20Diagnostic%20Nuclear%20Medicin e%20Procedures.pdf SIGNATURE: RT Hécotr(R) PATIENT NAME: Stacey Navarro DATE: December 21, 2023 TIME: 09:10 AM PAGER/CONTACT #: [facility] 12-07-2023 Note HNO ID: [id number] Author: MERCEDES ZAMAN MD Service: ? Author Type: Physician Type: Progress Notes Filed: 12/08/2023 06:56 Note Text: Chief Complaint Patient presents with: F/U 6 months HPI Stacey Navarro is a 48 year old male who presents here today for 6 month follow up. Father is present at exam. He has hx of GERD, asthma, migraine, neurofibromatosis, hyperlipidemia, intellectual disability, and those as below. Patient does taken Extra Strength for his headaches. These tend to be in the back of the neck and extend up into the occiput of th head. Patient has appt to see Neuro in the future, per dad. Patient declined flu vaccine today. Any new concerns today? None Any recent ER/hospital visits? Patient was seen in [facility] for chest pain. ER report reviewed. Dad with Hx of CAD. Has not had any further chest pain. Patient has not been taking te QVAR daily. He uses the albuterol as needed which is not very often and less then twice a week if that when needed. Has not needed any of the PPI. Office visit - Physical 06/15/2023 Patient has not been seen in almost 3 years. He has hx of GERD, asthma, migraine, neurofibromatosis, hyperlipidemia, intellectual disability, and those as below. Would like to get back on his medications. Has not been seen by neuro for Neurofibromatosis in nearly 3-4 years as well. Has not had MRI since 2019. Hasn't seen his eye Dr in a few years either. Past medical history, appointments, medications, allergies reviewed. 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 Carrillo 12/22/2016) and felt after further w/u no further eval needed. But suggested periodic monitoring. Closed nondisplaced fracture of neck of right radius 06/09/2016 Current use of proton pump inhibitor 12/20/2018 Family history of colon cancer 09/29/2018 mother Family history of congenital cardiac septal defect 09/29/2018 Family history of early CAD 09/29/2018 mother at 47 GERD without esophagitis 12/20/2018 Intellectual disability Was born with congenital cognitive delay. He went through formal testing when his was younger. Did graduate high school. Did take special classes while in school to get the help he needed. Can not read or write Medicare annual wellness visit, subsequent 06/22/2018 Medicare part B: 01/28/2010 last done: 07/18/2019 Medication management 06/12/2020 Migraine without aura and without status migrainosus, not intractable 01/18/2016 Mild persistent asthma without complication 09/11/2015 Mixed hyperlipidemia 09/11/2015 High HDL, normal LDL Neurofibromatosis (HCC) 02/26/2009 Follows with yearly MRI per Dr. Zaman (last one 06/2017 unchanged, 06/2018 stable) --- Dr. Parish Torres, ophthalmology. Has lesions on right optic nerve and throughout brain matter. Previous Surgical History PAST SURGICAL HISTORY Procedure Laterality Date 2D ECHO (EXEP) 09/29/2018 EF=67% nl valves COLONOSCOPY FLX DX W/COLLJ SPEC WHEN PFRMD 11/08/2018 Colonoscopy, Dr. Young repeat 10 yrs ESOPHAGOGASTRODUODENOSCOPY TRANSORAL DIAGNOSTIC 11/08/2018 gastritis, esophagitis, superficial ulcerations without bleeding PAST SURGICAL HISTORY OF removal of all his top teeth and a few on the bottom PAST SURGICAL HISTORY OF removal of one neurofibroma on head 2006 STRESS TEST 10/19/2018 normal Family History FAMILY HISTORY Problem Relation Age of Onset Ischemic Heart Disease Mother 47 CABG Hypertension Mother Lipids Mother Colon Cancer Mother 63 at 65 other (NEUROFIBROMATOSIS) Mother Hypertension Father other (migraines) Father other (neurofibromatosis) Brother Lipids Brother Stroke Maternal Grandmother Ischemic Heart Disease Maternal Grandfather IN Cancer Maternal Grandfather lung Cancer Paternal Grandmother lung Patient Allergies ALLERGIES Allergen Reactions Environmental Aller* Unknown cats, dogs, dust mites, molds, trees, grasses, weeds, ragweed Current Medications Current Outpatient Medications on File Prior to Visit Medication Sig albuterol HFA (PROVENTIL HFA, VENTOLIN HFA) 90 mcg/actuation inhaler 2 puffs every four hours as needed for cough, wheezing , chest tightness or shortness of breath fluticasone (FLONASE) 50 mcg/actuation nasal spray Use 2 Sprays in each nostril every morning. Olopatadine (PATADAY) 0.2 % drop Use 1 Drop in both eyes twice daily. albuterol (PROVENTIL) 2.5 mg /3 mL (0.083 %) nebulizer solution Use 3 mL via nebulizer every 4 hours as needed. cetirizine (ZYRTEC) 10 mg ORAL tablet Take 1 tablet by mouth once daily as needed. ipratropium bromide (ATROVENT) 0.06 % NASAL nasal spray Use 2 Sprays in the nose four times daily. As needed for runny nose. beclomethasone (QVAR) 40 mcg/actuation INHALATION inhaler Inhale 2 Puffs as instructed twice daily. Use with spacer. No current facility-administer (more content not included)... [facility] 09-21-2023 Miscellaneous Notes Father notified and voiced understanding. Susanne Cheney MA Let patient know MRI of brain was normal. Received pt's MRI results ordered by Reyna. Dr Zaman can you please review? Patient had ov with Reyna 06/15/23. Thank you. Kaitlin Gallegos LPN Scan on 09/18/2023 8:51 PM by Provider, BRETT Swenosn: MRI documented in this encounter [facility] 08-17-2023 Miscellaneous Notes Pt's father stops by office stating they went to pt's MRI appointment at scheduled time and were given paper work to fill out and then were advised pt needed to come back in 1.5 hrs. Father states they were not able to do that and procedure was canceled. Father wants to do MRI at [facility]. Advised him would fax order over and ask that they contact him to schedule appointment. Advised him if he does not hear back in a couple of days to contact [facility] to schedule. He verbalizes understanding. Order and demographics and insurance cards faxed to [facility]. Kaitlin Gallegos LPN documented in this encounter [facility] 06-15-2023 Note HNO ID: [id number] Author: Reyna Hebert PA-C Service: ? Author Type: Physician Citrix Architect Type: Progress Notes Filed: 06/15/2023 11:15 AM Note Text: Chief Complaint Patient presents with: Yearly Exam HPI Stacey Navarro is a 47 year old male who presents here today for Chronic Medical Conditions.. Patient has not been seen in almost 3 years. He has hx of GERD, asthma, migraine, neurofibromatosis, hyperlipidemia, intellectual disability, and those as below. Would like to get back on his medications. Has not been seen by neuro for Neurofibromatosis in nearly 3-4 years as well. Has not had MRI since 2019. Hasn't seen his eye Dr in a few years either. Past medical history, appointments, medications, allergies reviewed. 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 Carrillo 12/22/2016) and felt after further w/u no further eval needed. But suggested periodic monitoring. Closed nondisplaced fracture of neck of right radius 06/09/2016 Current use of proton pump inhibitor 12/20/2018 Family history of colon cancer 09/29/2018 mother Family history of congenital cardiac septal defect 09/29/2018 Family history of early CAD 09/29/2018 mother at 47 GERD without esophagitis 12/20/2018 Intellectual disability Was born with congenital cognitive delay. He went through formal testing when his was younger. Did graduate high school. Did take special classes while in school to get the help he needed. Can not read or write Medicare annual wellness visit, subsequent 06/22/2018 Medicare part B: 01/28/2010 last done: 07/18/2019 Medication management 06/12/2020 Migraine without aura and without status migrainosus, not intractable 01/18/2016 Mild persistent asthma without complication 09/11/2015 Mixed hyperlipidemia 09/11/2015 High HDL, normal LDL Neurofibromatosis (HCC) 02/26/2009 Follows with yearly MRI per Dr. Zaman (last one 06/2017 unchanged, 06/2018 stable) --- Dr. Parish Torres, ophthalmology. Has lesions on right optic nerve and throughout brain matter. Previous Surgical History PAST SURGICAL HISTORY Procedure Laterality Date 2D ECHO (EXEP) 09/29/2018 EF=67% nl valves COLONOSCOPY FLX DX W/COLLJ SPEC WHEN PFRMD 11/08/2018 Colonoscopy, Dr. Young repeat 10 yrs ESOPHAGOGASTRODUODENOSCOPY TRANSORAL DIAGNOSTIC 11/08/2018 gastritis, esophagitis, superficial ulcerations without bleeding PAST SURGICAL HISTORY OF removal of all his top teeth and a few on the bottom PAST SURGICAL HISTORY OF removal of one neurofibroma on head 2006 STRESS TEST 10/19/2018 normal Family History FAMILY HISTORY Problem Relation Age of Onset Ischemic Heart Disease Mother 47 CABG Hypertension Mother Lipids Mother Colon Cancer Mother 63 at 65 other (NEUROFIBROMATOSIS) Mother Hypertension Father other (migraines) Father other (neurofibromatosis) Brother Lipids Brother Stroke Maternal Grandmother Ischemic Heart Disease Maternal Grandfather IN Cancer Maternal Grandfather lung Cancer Paternal Grandmother lung Patient Allergies ALLERGIES Allergen Reactions Environmental Aller* Unknown cats, dogs, dust mites, molds, trees, grasses, weeds, ragweed Current Medications Current Outpatient Medications on File Prior to Visit Medication Sig albuterol HFA (PROVENTIL HFA, VENTOLIN HFA) 90 mcg/actuation inhaler 2 puffs every four hours as needed for cough, wheezing , chest tightness or shortness of breath fluticasone (FLONASE) 50 mcg/actuation nasal spray Use 2 Sprays in each nostril every morning. propranolol (INDERAL) 10 mg tablet Take 1 tablet by mouth once daily. Olopatadine (PATADAY) 0.2 % drop Use 1 Drop in both eyes twice daily. cetirizine (ZYRTEC) 10 mg ORAL tablet Take 1 tablet by mouth once daily as needed. ipratropium bromide (ATROVENT) 0.06 % NASAL nasal spray Use 2 Sprays in the nose four times daily. As needed for runny nose. beclomethasone (QVAR) 40 mcg/actuation INHALATION inhaler Inhale 2 Puffs as instructed twice daily. Use with spacer. albuterol 2.5 mg /3 mL (0.083 %) INHALATION nebulizer solution Use 3 mL via nebulizer every 4 hours as needed. omeprazole (PRILOSEC) 20 mg capsule Take 1 capsule by mouth daily before breakfast. 1/2 hr before meal. (Patient not taking: Reported on 06/15/2023) No current facility-administered medications on file prior to visit. Social History Social History Tobacco Use Smoking status: Never Smokeless tobacco: Never Vaping Use Vaping Use: Never used Substance Use Topics Alcohol use: No Drug use: No Comment: 6 large Pepsi or more per day Review of Symptoms REVIEW OF SYSTEMS GENERAL: No weight loss, malaise or fevers NECK: Negative for lumps, goiter, pain and significant neck swelling RESPIRATORY: Negative for cough, hemoptysis, wheezing, COPD, dyspnea or shortness of breath CARDIOVASCU (more content not included)... [facility] 06-15-2023 History of Presen t illness Narrative Chief Complaint Patient presents with: Yearly Exam HPI Stacey Navarro is a 47 year old male who presents here today for Chronic Medical Conditions.. Patient has not been seen in almost 3 years. He has hx of GERD, asthma, migraine, neurofibromatosis, hyperlipidemia, intellectual disability, and those as below. Would like to get back on his medications. Has not been seen by neuro for Neurofibromatosis in nearly 3-4 years as well. Has not had MRI since 2019. Hasn't seen his eye Dr in a few years either. Past medical history, appointments, medications, allergies reviewed. 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 Carrillo 12/22/2016) and felt after further w/u no further eval needed. But suggested periodic monitoring. Closed nondisplaced fracture of neck of right radius 06/09/2016 Current use of proton pump inhibitor 12/20/2018 Family history of colon cancer 09/29/2018 mother Family history of congenital cardiac septal defect 09/29/2018 Family history of early CAD 09/29/2018 mother at 47 GERD without esophagitis 12/20/2018 Intellectual disability Was born with congenital cognitive delay. He went through formal testing when his was younger. Did graduate high school. Did take special classes while in school to get the help he needed. Can not read or write Medicare annual wellness visit, subsequent 06/22/2018 Medicare part B: 01/28/2010 last done: 07/18/2019 Medication management 06/12/2020 Migraine without aura and without status migrainosus, not intractable 01/18/2016 Mild persistent asthma without complication 09/11/2015 Mixed hyperlipidemia 09/11/2015 High HDL, normal LDL Neurofibromatosis (HCC) 02/26/2009 Follows with yearly MRI per Dr. Zaman (last one 06/2017 unchanged, 06/2018 stable) --- Dr. Parish Torres, ophthalmology. Has lesions on right optic nerve and throughout brain matter. Previous Surgical History PAST SURGICAL HISTORY Procedure Laterality Date 2D ECHO (EXEP) 09/29/2018 EF=67% nl valves COLONOSCOPY FLX DX W/COLLJ SPEC WHEN PFRMD 11/08/2018 Colonoscopy, Dr. Young repeat 10 yrs ESOPHAGOGASTRODUODENOSCOPY TRANSORAL DIAGNOSTIC 11/08/2018 gastritis, esophagitis, superficial ulcerations without bleeding PAST SURGICAL HISTORY OF removal of all his top teeth and a few on the bottom PAST SURGICAL HISTORY OF removal of one neurofibroma on head 2006 STRESS TEST 10/19/2018 normal Family History FAMILY HISTORY Problem Relation Age of Onset Ischemic Heart Disease Mother 47 CABG Hypertension Mother Lipids Mother Colon Cancer Mother 63 at 65 other (NEUROFIBROMATOSIS) Mother Hypertension Father other (migraines) Father other (neurofibromatosis) Brother Lipids Brother Stroke Maternal Grandmother Ischemic Heart Disease Maternal Grandfather IN Cancer Maternal Grandfather lung Cancer Paternal Grandmother lung Patient Allergies ALLERGIES Allergen Reactions Environmental Aller* Unknown cats, dogs, dust mites, molds, trees, grasses, weeds, ragweed Current Medications Current Outpatient Medications on File Prior to Visit Medication Sig albuterol HFA (PROVENTIL HFA, VENTOLIN HFA) 90 mcg/actuation inhaler 2 puffs every four hours as needed for cough, wheezing , chest tightness or shortness of breath fluticasone (FLONASE) 50 mcg/actuation nasal spray Use 2 Sprays in each nostril every morning. propranolol (INDERAL) 10 mg tablet Take 1 tablet by mouth once daily. Olopatadine (PATADAY) 0.2 % drop Use 1 Drop in both eyes twice daily. cetirizine (ZYRTEC) 10 mg ORAL tablet Take 1 tablet by mouth once daily as needed. ipratropium bromide (ATROVENT) 0.06 % NASAL nasal spray Use 2 Sprays in the nose four times daily. As needed for runny nose. beclomethasone (QVAR) 40 mcg/actuation INHALATION inhaler Inhale 2 Puffs as instructed twice daily. Use with spacer. albuterol 2.5 mg /3 mL (0.083 %) INHALATION nebulizer solution Use 3 mL via nebulizer every 4 hours as needed. omeprazole (PRILOSEC) 20 mg capsule Take 1 capsule by mouth daily before breakfast. 1/2 hr before meal. (Patient not taking: Reported on 06/15/2023) No current facility-administered medications on file prior to visit. Social History Social History Tobacco Use Smoking status: Never Smokeless tobacco: Never Vaping Use Vaping Use: Never used Substance Use Topics Alcohol use: No Drug use: No Comment: 6 large Pepsi or more per day Review of Symptoms REVIEW OF SYSTEMS GENERAL: No weight loss, malaise or fevers NECK: Negative for lumps, goiter, pain and significant neck swelling RESPIRATORY: Negative for cough, hemoptysis, wheezing, COPD, dyspnea or shortness of breath CARDIOVASCULAR: Negative for chest pain, leg swelling, hypertension, CHF or palpitations GI: heartburn at times. Depends on food. Tums prn helps : No history of dysuria, frequency or incontinence ENDOCRINE: Negative for cold or heat intolerance, polyuria, polydipsia and goiter NEURO: chronic headaches. EXAM: BP 120/76 (BP Site: Left Arm, BP Position: Sitting, BP Cuff Size: Regular Adult) Pulse 70 Temp 36.5 C (97.7 F) Resp 16 Ht 174 cm (5' 8.5 ) Wt 66.7 kg (147 lb) BMI 22.02 kg/m General Appearance: Well appearing, alert, in no acute distress, well-hydrated, well nourished.. Eyes: Anicteric sclera. Pupils are equally round and reactive to light. Extraocular movements are intact. . Ears: External ears normal, canals clear. Nose/Sinuses: Nares normal, septum midline, mucosa normal, no drainage or sinus tenderness. Oropharynx: Lips, mucosa, and tongue normal, teeth and gums normal, oropharynx normal. Neck: Supple, no adenopathy; thyroid symmetric, normal size, no bruits. Lungs: Lungs clear to auscultation. No wheezing, rhonchi, rales.. Heart: RRR without murmur, gallop, or rubs. No ectopy. Abdomen: Normal abdominal exam, Abdomen soft, non-tender. Bowel sounds normal. No masses, organomegaly. Extremities: No deformities, edema, skin discoloration, clubbing or cyanosis. Good capillary refill. . Peripheral Pulses: Normal. Neurologic: Gait normal. Reflexes normal and symmetric. Sensation grossly intact.. Health Maintenance List HEPATITIS B(1 of 3 - 3-dose series) Never done HEPATITIS C SCREENING Never done HIV SCREENING Never done DIABETES SCREEN due on 12/20/2021 DEPRESSION ASSESSMENT Never done COVID-19 VACCINE(1) due on 06/15/2024 INFLUENZA(1) due on 07/31/2023 COLORECTAL CANCER SCREENING due on 11/08/2023 ANNUAL PCP TEAM CHRONIC DISEASE VISIT due on 05/25/2024 LIPID SCREEN due on 07/18/2024 DTAP,TDAP,TD(2 - Td or Tdap) due on 09/11/2025 PNEUMOCOCCAL(3 - PPSV23 or PCV20) due on 2041 SPIROMETRY Completed HPV VACCINE Aged Out Data reviewed ASSESSMENT/PLAN: 1. Neurofibromatosis (HCC) - ICD9: 237.70, ICD10: Q85.00 (primary diagnosis) Will get updated MRI and set patient back up with neuro. Advised patient and hotel maintenance technician to set up appt with eye dr. - CONSULT TO NEUROLOGY - MRI BRAIN WO/W IVCON - COMP METABOLIC PANEL 2. Acute atopic conjunctivitis of both eyes - ICD9: 372.05, ICD10: H10.13 - OLOPATADINE 0.2 % EYE DROPS 3. Migraine without aura and without status migrainosus, not intractable - ICD9: 346.10, ICD10: G43.009 Set up with neuro. - CONSULT TO NEUROLOGY - MRI BRAIN WO/W IVCON 4. Mixed hyperlipidemia - ICD9: 272.2, ICD10: E78.2 Await labs - LIPID PANEL, NONFASTING - COMP METABOLIC PANEL 5. Intellectual disability - ICD9: 319, ICD10: F79 Chronically stable 6. GERD without esophagitis - ICD9: 530.81, ICD10: K21.9 Patient prefers to continue just PRN tums for now. Omeprazole caused constipation - COMP METABOLIC PANEL Reyna Hebert PA-C documented in this encounter [facility] 06-11-2023 Note HNO ID: [id number] Author: Susanne Cheney MA Service: ? Author Type: Ship Painter Helper Type: Progress Notes Filed: 06/11/2023 4:42 PM Note Text: Scan on 06/08/2023 11:15 AM by Leela Stahl PA-C: X-ray Scan on 06/08/2023 11:49 AM by Leela Stahl PA-C: Consultation - Emergency Medicine Scan on 06/09/2023 12:22 PM by ProviderLeela PA-C: X-ray Scan on 06/09/2023 12:58 PM by Leela Stahl PA-C: Consultation - Emergency Medicine Susanne Cheney MA [facility] 06-11-2023 History of Presen t illness Narrative Scan on 06/08/2023 11:15 AM by Leela Stahl PA-C: X-ray Scan on 06/08/2023 11:49 AM by Leela Stahl PA-C: Consultation - Emergency Medicine Scan on 06/09/2023 12:22 PM by Leela Stahl PA-C: X-ray Scan on 06/09/2023 12:58 PM by Leela Stahl PA-C: Consultation - Emergency Medicine Susanne Cheney MA documented in this encounter [facility] 06-10-2023 Note HNO ID: [id number] Author: Keith Pollard APRN.RECHECKER Service: ? Author Type: Nurse Practitioner Type: Progress Notes Filed: 06/10/2023 9:42 AM Note Text: Subjective HPI HPI Stacey Navarro is a 47 year old male who presents today for CC of heartburn, cough. This started 2 days ago. Has tried otc medication without relief. Symptoms are worsened by at night. Went to ER, cardiac workup negative. 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 Carrillo 12/22/2016) and felt after further w/u no further eval needed. But suggested periodic monitoring. Closed nondisplaced fracture of neck of right radius 06/09/2016 Current use of proton pump inhibitor 12/20/2018 Family history of colon cancer 09/29/2018 mother Family history of congenital cardiac septal defect 09/29/2018 Family history of early CAD 09/29/2018 mother at 47 GERD without esophagitis 12/20/2018 Intellectual disability Was born with congenital cognitive delay. He went through formal testing when his was younger. Did graduate high school. Did take special classes while in school to get the help he needed. Can not read or write Medicare annual wellness visit, subsequent 06/22/2018 Medicare part B: 01/28/2010 last done: 07/18/2019 Medication management 06/12/2020 Migraine without aura and without status migrainosus, not intractable 01/18/2016 Mild persistent asthma without complication 09/11/2015 Mixed hyperlipidemia 09/11/2015 High HDL, normal LDL Neurofibromatosis (HCC) 02/26/2009 Follows with yearly MRI per Dr. Zaman (last one 06/2017 unchanged, 06/2018 stable) --- Dr. Parish Torres, ophthalmology. Has lesions on right optic nerve and throughout brain matter. PAST SURGICAL HISTORY Procedure Laterality Date 2D ECHO (EXEP) 09/29/2018 EF=67% nl valves COLONOSCOPY FLX DX W/COLLJ SPEC WHEN PFRMD 11/08/2018 Colonoscopy, Dr. Young repeat 10 yrs ESOPHAGOGASTRODUODENOSCOPY TRANSORAL DIAGNOSTIC 11/08/2018 gastritis, esophagitis, superficial ulcerations without bleeding PAST SURGICAL HISTORY OF removal of all his top teeth and a few on the bottom PAST SURGICAL HISTORY OF removal of one neurofibroma on head 2006 STRESS TEST 10/19/2018 normal ALLERGIES Environmental Allergies [Other] MEDICATIONS albuterol HFA (PROVENTIL HFA, VENTOLIN HFA) 90 mcg/actuation inhaler 2 puffs every four hours as needed for cough, wheezing , chest tightness or shortness of breath fluticasone (FLONASE) 50 mcg/actuation nasal spray Use 2 Sprays in each nostril every morning. propranolol (INDERAL) 10 mg tablet Take 1 tablet by mouth once daily. Olopatadine (PATADAY) 0.2 % drop Use 1 Drop in both eyes twice daily. cetirizine (ZYRTEC) 10 mg ORAL tablet Take 1 tablet by mouth once daily as needed. ipratropium bromide (ATROVENT) 0.06 % NASAL nasal spray Use 2 Sprays in the nose four times daily. As needed for runny nose. beclomethasone (QVAR) 40 mcg/actuation INHALATION inhaler Inhale 2 Puffs as instructed twice daily. Use with spacer. albuterol 2.5 mg /3 mL (0.083 %) INHALATION nebulizer solution Use 3 mL via nebulizer every 4 hours as needed. FAMILY HISTORY Problem Relation Age of Onset Ischemic Heart Disease Mother 47 CABG Hypertension Mother Lipids Mother Colon Cancer Mother 63 at 65 other (NEUROFIBROMATOSIS) Mother Hypertension Father other (migraines) Father other (neurofibromatosis) Brother Lipids Brother Stroke Maternal Grandmother Ischemic Heart Disease Maternal Grandfather IN Cancer Maternal Grandfather lung Cancer Paternal Grandmother lung Social History Tobacco Use Smoking status: Never Smokeless tobacco: Never Vaping Use Vaping Use: Never used Substance Use Topics Alcohol use: No Drug use: No Comment: 6 large Pepsi or more per day Review of Systems HENT: Negative for congestion and sore throat. Respiratory: Positive for cough and shortness of breath. Cardiovascular: Negative for chest pain. Objective Blood pressure 148/72, pulse 81, temperature 36.7 ?C (98.1 ?F), resp. rate 21, weight 68.2 kg (150 lb 6.4 oz), SpO2 99 %. Physical Exam Constitutional: General: He is not in acute distress. Appearance: Normal appearance. He is not toxic-appearing. HENT: Nose: Nose normal. Mouth/Throat: Lips: [place]. Mouth: Mucous membranes are moist. Pharynx: Oropharynx is clear. Uvula midline. Cardiovascular: Rate and Rhythm: Normal rate and regular rhythm. Heart sounds: Normal heart sounds. Pulmonary: Effort: Pulmonary effort is normal. Breath sounds: Normal breath sounds. Abdominal: General: Bowel sounds are normal. Palpations: Abdomen is soft. Tenderness: There is no abdominal tenderness. Lymphadenopathy: Cervical: No cervical adenopathy. Right cervical: No superficial cervical adenopathy. Left cervical: No s (more content not included)... [facility] 05-25-2023 Note HNO ID: [id number] Author: Reyna Hebert PA-C Service: ? Author Type: Physician Citrix Architect Type: Progress Notes Filed: 05/25/2023 11:04 AM Note Text: Unable to complete visit due to [facility] epic issues. Patient has not been seen almost 3 years. Refill of albuterol sent but will reschedule patient for physical. Apologized to patient for the inconvenience. [facility] 05-25-2023 History of Presen t illness Narrative Unable to complete visit due to [facility] epic issues. Patient has not been seen almost 3 years. Refill of albuterol sent but will reschedule patient for physical. Apologized to patient for the inconvenience. documented in this encounter [facility] 08-12-2022 History of Presen t illness Narrative Subjective Nasal Congestion Pertinent negatives include no chills, congestion, coughing, ear pain, headaches, shortness of breath or sore throat. Stacey Navarro is a 46 year old male who presents for COVID testing. He had a direct exposure in the past week. He is not having any symptoms. The high lift driver of a bus he was riding had COVID. He has history COVID infection in August 2021. Review of Systems Constitutional: Negative for chills, fever and malaise/fatigue. HENT: Negative for congestion, ear pain and sore throat. Respiratory: Negative for cough and shortness of breath. Gastrointestinal: Negative for diarrhea, nausea and vomiting. Musculoskeletal: Negative for myalgias. Neurological: Negative for headaches. 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 Carrillo 12/22/2016) and felt after further w/u no further eval needed. But suggested periodic monitoring. Closed nondisplaced fracture of neck of right radius 06/09/2016 Current use of proton pump inhibitor 12/20/2018 Family history of colon cancer 09/29/2018 mother Family history of congenital cardiac septal defect 09/29/2018 Family history of early CAD 09/29/2018 mother at 47 GERD without esophagitis 12/20/2018 Intellectual disability Was born with congenital cognitive delay. He went through formal testing when his was younger. Did graduate high school. Did take special classes while in school to get the help he needed. Can not read or write Medicare annual wellness visit, subsequent 06/22/2018 Medicare part B: 01/28/2010 last done: 07/18/2019 Medication management 06/12/2020 Migraine without aura and without status migrainosus, not intractable 01/18/2016 Mild persistent asthma without complication 09/11/2015 Mixed hyperlipidemia 09/11/2015 High HDL, normal LDL Neurofibromatosis (HCC) 02/26/2009 Follows with yearly MRI per Dr. Zaman (last one 06/2017 unchanged, 06/2018 stable) --- Dr. Parish Torres, ophthalmology. Has lesions on right optic nerve and throughout brain matter. PAST SURGICAL HISTORY Procedure Laterality Date 2D ECHO (EXEP) 09/29/2018 EF=67% nl valves COLONOSCOPY FLX DX W/COLLJ SPEC WHEN PFRMD 11/08/2018 Colonoscopy, Dr. Young repeat 10 yrs ESOPHAGOGASTRODUODENOSCOPY TRANSORAL DIAGNOSTIC 11/08/2018 gastritis, esophagitis, superficial ulcerations without bleeding PAST SURGICAL HISTORY OF removal of all his top teeth and a few on the bottom PAST SURGICAL HISTORY OF removal of one neurofibroma on head 2006 STRESS TEST 10/19/2018 normal ALLERGIES Environmental Allergies [Other] MEDICATIONS fluticasone (FLONASE) 50 mcg/actuation nasal spray Use 2 Sprays in each nostril every morning. propranolol (INDERAL) 10 mg tablet Take 1 tablet by mouth once daily. Olopatadine (PATADAY) 0.2 % drop Use 1 Drop in both eyes twice daily. albuterol HFA (PROVENTIL HFA, VENTOLIN HFA) 90 mcg/actuation inhaler 2 puffs every four hours as needed for cough, wheezing , chest tightness or shortness of breath cetirizine (ZYRTEC) 10 mg ORAL tablet Take 1 tablet by mouth once daily as needed. ipratropium bromide (ATROVENT) 0.06 % NASAL nasal spray Use 2 Sprays in the nose four times daily. As needed for runny nose. beclomethasone (QVAR) 40 mcg/actuation INHALATION inhaler Inhale 2 Puffs as instructed twice daily. Use with spacer. albuterol 2.5 mg /3 mL (0.083 %) INHALATION nebulizer solution Use 3 mL via nebulizer every 4 hours as needed. Omeprazole Magnesium (PRILOSEC OTC) 20 mg tablet Take 1 tablet by mouth daily before breakfast. 1/2 hr before meal. (Patient not taking: Reported on 07/25/2022) polyethylene glycol 3350 (MIRALAX, GLYCOLAX) 17 gram packet MIX AND DRINK 1 PACKET WITH WATER BY MOUTH THREE TIMES DAILY (Patient not taking: Reported on 07/22/2021) dextromethorphan-guaiFENesin (MUCINEX DM) 30-600 mg per tablet Take 1 tablet by mouth twice daily. (Patient not taking: Reported on 07/22/2021 ) FAMILY HISTORY Problem Relation Age of Onset Ischemic Heart Disease Mother 47 CABG Hypertension Mother Lipids Mother Colon Cancer Mother 63 at 65 other (NEUROFIBROMATOSIS) Mother Hypertension Father other (migraines) Father other (neurofibromatosis) Brother Lipids Brother Stroke Maternal Grandmother Ischemic Heart Disease Maternal Grandfather IN Cancer Maternal Grandfather lung Cancer Paternal Grandmother lung Social History Tobacco Use Smoking status: Never Smokeless tobacco: Never Vaping Use Vaping Use: Never used Substance Use Topics Alcohol use: No Drug use: No Comment: 6 large Pepsi or more per day Objective Physical Exam Vitals and nursing note reviewed. Constitutional: Appearance: Normal appearance. Cardiovascular: Rate and Rhythm: Normal rate and regular rhythm. Heart sounds: Normal heart sounds. Pulmonary: Effort: Pulmonary effort is normal. No respiratory distress. Breath sounds: Normal breath sounds. No wheezing or rales. Skin: General: Skin is warm and dry. Findings: No erythema or rash. Neurological: Mental Status: He is alert. ASSESSMENT/PLAN: 1. Close exposure to COVID-19 virus - ICD9: V01.79, ICD10: Z20.822 - ASYMPTOMATIC ELECTIVE COVID-19 Tonja Gonzalez APRN.CNP documented in this encounter [facility] 08-12-2022 Instructions Tonja Gonzalez APRN.CNP - 08/12/2022 3:11 PM EDT ASSESSMENT/PLAN: 1. Close exposure to COVID-19 virus - ICD9: V01.79, ICD10: Z20.822 - ASYMPTOMATIC ELECTIVE COVID-19 Tonja Gonzalez APRN.CNP Beginning Home Isolation Isolation is used to separate people infected with SARS-CoV-2, the virus that causes COVID-19, from people who are not infected. People who are in isolation should stay home until it s safe for them to be around others. In the home, anyone sick or infected should separate themselves from others by staying in a specific sick room or area and using a separate bathroom (if available). Isolation or Quarantine: What's the difference? Quarantine keeps someone who might have been exposed to the virus away from others. Isolation keeps someone who is infected with the virus away from others, even in their home. Who needs to isolate People who have COVID-19 People who have symptoms of COVID-19 and are able to recover at home People who have no symptoms (are asymptomatic) but have tested positive for infection with SARS-CoV-2 Steps to take Stay home except to get medical care Monitor your symptoms. Stay in a separate room from other household members, if possible Use a separate bathroom, if possible Avoid contact with other members of the household and pets Don t share personal household items, like cups, towels, and utensils Wear a mask when around other people, if you are able to When to seek emergency medical attention Look for emergency warning signs* for COVID-19. If someone is showing any of these signs, seek emergency medical care immediately: Trouble breathing Persistent pain or pressure in the chest New confusion Inability to wake or stay awake Bluish lips or face *This list is not all possible symptoms. Please call your medical provider for any other symptoms that are severe or concerning to you. Call 911 or call ahead to your local emergency facility: Notify the adding machine operator that you are seeking care for someone who has or may have COVID-19. Ending Home Isolation - When you can be around others after you had or likely had COVID-19 When you can be around others after you had or likely had COVID-19 If You Test Positive for COVID-19 (Isolation) Everyone, regardless of vaccination status: Stay home for 5 days. Note: Day 0 is your first day of symptoms or the date of collection of a positive viral test if no symptoms. Day 1 is the first full day after symptoms developed or test specimen was collected. If you have no symptoms or your symptoms are resolving after 5 days, you can leave your house. Continue to wear a mask around others for 5 additional days. If you have a fever, continue to stay home until your fever resolves, even if it is longer than 5 days. If You Were Exposed to Someone with COVID-19 (Quarantine) If you: 1. Have been boosted OR 2. Completed the primary series of Pfizer or Moderna vaccine within the last 6 months OR 3. Completed the primary series of J&J vaccine within the last 2 months THEN: 1. Wear a mask around others for 10 days. 2. Test on day 5, if possible. If you develop symptoms get a test and stay home. If You Were Exposed to Someone with COVID-19 (Quarantine) If you: 1. Completed the primary series of Pfizer or Moderna vaccine over 6 months ago and are not boosted OR 2. Completed the primary series of J&J over 2 months ago and are not boosted OR 3. Are unvaccinated THEN: 1. Stay home for 5 days. After that continue to wear a mask around others for 5 additional days. 2. If you can't quarantine you must wear a mask for 10 days. 3. Test on day 5 if possible. If you develop symptoms get a test and stay home. I had COVID-19 or I tested positive for COVID-19 and I have a weakened immune system If you have a weakened immune system (immunocompromised) due to a health condition or medication, you might need to stay home and isolate longer than 10 days. Talk to your healthcare provider for more information. Your doctor may work with an infectious disease expert at your local health department to determine when you can be around others. IF you develop symptoms: How to Manage Common Symptoms Associated with COVID for Adults Fever- Fever is a temperature over 100.4 F and can occur when the body is fighting an infection. To help treat a fever: Drink plenty of fluids and stay well hydrated. Eat small amounts of easy to digest food. Rest. Your body needs rest to recover, but getting up and moving around the house frequently is a good idea. You should try to continue doing your normal daily activities (bathing, toileting, grooming, cooking), though you will probably feel tired, and need to rest often. Avoid any heavy activity or exercise, as this will increase your body temperature. Dress in light clothing and stay covered in a light sheet. Keep the room temperature cool. Take a slightly warm (not cold or cool) bath, or apply damp washcloths to the forehead and wrists. Cough- Cough is a common symptom associated with COVID and can be bothersome. To help treat a cough: Stay well hydrated. Try warm water or tea with lemon and/or honey to help soothe the cough. Use a humidifier to add moisture to the air. Try a product with menthol, like a cough drop or a rub for your chest such as Vicks, which can help reduce cough. Try cough drops. Avoid smoking and other strong odors or perfumes. Try breathing exercises to keep your lungs open and clear. Take a big deep breath through your nose and hold for 5 seconds before slowly releasing. Repeat frequently, while you are awake. Congestion- Runny nose or nasal congestion can occur with COVID. Treatment can help relieve symptoms: Try OTC nasal saline spray, or nasal saline rinse to relieve mucus congestion. Nasal strips can help keep nasal passages open, to increase airflow. Elevating your head with an extra pillow in bed can help reduce congestion. Using a humidifier can increase moisture in the air, and make breathing easier. Sore Throat- Another common symptom with COVID, can be managed at home by: Stay well hydrated. Gargle with salt water - mix teaspoon salt with 1 cup of warm water and gargle. This helps to loosen mucus in the back of the throat and may reduce discomfort. Try ice chips, popsicles or lozenges to soothe the throat. Nausea/Vomiting/Diarrhea- These are common symptoms, and staying hydrated is most important. If you are nauseous or vomiting, start with small sips of water every 10-15 minutes and increase as tolerated. You can try sucking an ice cube too. If tolerating, you can try pedialyte or Gatorade, or flat sprite or gracia-odilia. Start slowly and increase as you are able to. Instead of meals, try smaller, more frequent snacks. Try eating bland foods like crackers, toast, rice, and applesauce. Avoid spicy, greasy or fried foods and dairy containing foods. Even if you aren't feeling hungry due to lack of smell or taste, it is important to try to take in some food when you are able. After drinking and eating, rest in an upright position for up to two hours as needed to help decrease nauseous feelings. Try closing your eyes, avoid moving and watching TV. Avoid strong odors that can make you feel more nauseated. When to seek emergency medical attention Look for emergency warning signs for COVID-19. If having any of these symptoms, seek emergency medical care immediately: Trouble breathing Persistent pain or pressure in the chest New confusion Inability to wake or stay awake Bluish lips or face *This list is not all possible symptoms. Please call your medical provider for any other symptoms that are severe or concerning to you. documented in this encounter [facility] 07-25-2022 History of Presen t illness Narrative Patient presents with: Pain: Pt reported lifting heavy box (LT) arm injury pain rated 2, x10 days prior. HPI: Left arm pain: Duration: 1 1/2 weeks after lifting a heavy box Location: left elbow Character: aching Radiation: No. 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 Carrillo 12/22/2016) and felt after further w/u no further eval needed. But suggested periodic monitoring. Closed nondisplaced fracture of neck of right radius 06/09/2016 Current use of proton pump inhibitor 12/20/2018 Family history of colon cancer 09/29/2018 mother Family history of congenital cardiac septal defect 09/29/2018 Family history of early CAD 09/29/2018 mother at 47 GERD without esophagitis 12/20/2018 Intellectual disability Was born with congenital cognitive delay. He went through formal testing when his was younger. Did graduate high school. Did take special classes while in school to get the help he needed. Can not read or write Medicare annual wellness visit, subsequent 06/22/2018 Medicare part B: 01/28/2010 last done: 07/18/2019 Medication management 06/12/2020 Migraine without aura and without status migrainosus, not intractable 01/18/2016 Mild persistent asthma without complication 09/11/2015 Mixed hyperlipidemia 09/11/2015 High HDL, normal LDL Neurofibromatosis (HCC) 02/26/2009 Follows with yearly MRI per Dr. Zaman (last one 06/2017 unchanged, 06/2018 stable) --- Dr. Parish Torres, ophthalmology. Has lesions on right optic nerve and throughout brain matter. MEDICATIONS: fluticasone (FLONASE) 50 mcg/actuation nasal spray Use 2 Sprays in each nostril every morning. propranolol (INDERAL) 10 mg tablet Take 1 tablet by mouth once daily. Olopatadine (PATADAY) 0.2 % drop Use 1 Drop in both eyes twice daily. albuterol HFA (PROVENTIL HFA, VENTOLIN HFA) 90 mcg/actuation inhaler 2 puffs every four hours as needed for cough, wheezing , chest tightness or shortness of breath celecoxib (CELEBREX) 200 mg capsule Take 1 capsule by mouth twice daily. cetirizine (ZYRTEC) 10 mg ORAL tablet Take 1 tablet by mouth once daily as needed. ipratropium bromide (ATROVENT) 0.06 % NASAL nasal spray Use 2 Sprays in the nose four times daily. As needed for runny nose. beclomethasone (QVAR) 40 mcg/actuation INHALATION inhaler Inhale 2 Puffs as instructed twice daily. Use with spacer. albuterol 2.5 mg /3 mL (0.083 %) INHALATION nebulizer solution Use 3 mL via nebulizer every 4 hours as needed. Omeprazole Magnesium (PRILOSEC OTC) 20 mg tablet Take 1 tablet by mouth daily before breakfast. 1/2 hr before meal. (Patient not taking: Reported on 07/25/2022) polyethylene glycol 3350 (MIRALAX, GLYCOLAX) 17 gram packet MIX AND DRINK 1 PACKET WITH WATER BY MOUTH THREE TIMES DAILY (Patient not taking: Reported on 07/22/2021) dextromethorphan-guaiFENesin (MUCINEX DM) 30-600 mg per tablet Take 1 tablet by mouth twice daily. (Patient not taking: Reported on 07/22/2021 ) ALLERGIES: ALLERGIES Allergen Reactions Environmental Aller* Unknown cats, dogs, dust mites, molds, trees, grasses, weeds, ragweed VITALS: BP 116/74 Pulse 76 Temp 37 C (98.6 F) Resp 16 Wt 67.3 kg (148 lb 6.4 oz) SpO2 98% BMI 22.24 kg/m PE: Pleasant, in no acute distress. Accompanied by his father. Elbow: left. 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 No erythema, edema, ecchymosis, or deformity. Reports discomfort with elbow flexion-extension. Reports pain with palpation of the medial epicondyle, lateral epicondyle, antecubital area, and olecranon. ASSESSMENT/PLAN: 1. Elbow pain, left - ICD9: 719.42, ICD10: M25.522 - XR ELBOW SPECIAL VIEWS AP/LAT/OTHER LEFT - no acute fracture or dislocation. Radiology interpretation is pending. The patient will be notified if there is a significant finding in the report not discussed at the time of the visit. Left elbow strain. Declines ortho consult. Treat with anti-inflammatory - MELOXICAM 15 MG TABLET (Hx of GERD). Richard Powell MD documented in this encounter [facility] documented as of this encounter (statuses as of 07/25/2022) [facility] History of Past illness Narrative* Problem Noted Date Resolved Date Extrinsic asthma, unspecified 02/25/2006 Neurofibromatosis 02/25/2006 02/26/2009 documented as of this encounter (statuses as of 08/12/2022) [facility] History of Past illness Narrative* Problem Noted Date Resolved Date Extrinsic asthma, unspecified 02/25/2006 Neurofibromatosis 02/25/2006 02/26/2009 documented as of this encounter (statuses as of 05/25/2023) [facility] History of Past illness Narrative* Problem Noted Date Diagnosed Date Resolved Date Extrinsic asthma, unspecified 02/25/2006 02/13/2014 Neurofibromatosis 02/25/2006 02/26/2009 documented as of this encounter (statuses as of 06/12/2023) [facility] History of Past illness Narrative* Problem Noted Date Diagnosed Date Resolved Date Extrinsic asthma, unspecified 02/25/2006 02/13/2014 Neurofibromatosis 02/25/2006 02/26/2009 documented as of this encounter (statuses as of 06/15/2023) [facility] History of Past illness Narrative* Problem Noted Date Diagnosed Date Resolved Date Extrinsic asthma, unspecified 02/25/2006 02/13/2014 Neurofibromatosis 02/25/2006 02/26/2009 documented as of this encounter (statuses as of 08/17/2023) [facility] History of Past illness Narrative* Problem Noted Date Diagnosed Date Resolved Date Extrinsic asthma, unspecified 02/25/2006 02/13/2014 Neurofibromatosis 02/25/2006 02/26/2009 documented as of this encounter (statuses as of 09/21/2023) [facility] Diagnosis Elbow pain, left- Primary Pain in joint, upper arm [facility] Diagnosis Close exposure to COVID-19 virus- Primary [facility] Diagnosis Patient left without being seen- Primary Surgical or other procedure not carried out because of patient's decision [facility] Diagnosis Neurofibromatosis (HCC)- Primary Neurofibromatosis, unspecified Acute atopic conjunctivitis of both eyes Acute atopic conjunctivitis Migraine without aura and without status migrainosus, not intractable Migraine without aura, without mention of intractable migraine without mention of status migrainosus Mixed hyperlipidemia Intellectual disability Unspecified intellectual disabilities GERD without esophagitis Esophageal reflux [facility] Diagnostic Procedure Only (Urgent) - Closed Specialty Diagnoses / Procedures Referred By Contac t Referred To Contact XR IMAGING Diagnoses Elbow pain, left Procedures XR ELBOW SPECIAL VIEWS AP/LAT/OTHER LEFT RADEX ELBOW COMPLETE MINIMUM 3 VIEWS Richard Powell MD [address] [place] [address] Xr Imaging Referral ID Status Reason Start Date Expiration Date V isits Requested Visits Authorized [id number] Closed Auto-Generate d Referral 07/25/2022 08/24/2023 1 1 [facility] Health Concerns Infection Onset Date Last Indicated Resolved Time COVID-19 Rule-Out 08/12/2022 08/12/2022 Reason for Referral Specialty Diagnoses / Procedures Referred By Contac t Referred To Contact MR IMAGING Diagnoses Neurofibromatosis (HCC) Migraine without aura and without status migrainosus, not intractable Procedures MRI BRAIN WO/W IVCON MRI BRAIN BRAIN STEM W/O W/CONTRAST MATERIAL Reyna Hebert PA-C [address] [place] [address] Mr Imaging Referral ID Status Reason Start Date Expiration Date Visits Requested Visits Authorized [id number] Pending Review Auto-Generat ed Referral 06/15/2023 07/14/2024 1 1 Specialty Diagnoses / Procedures Referred By Katie luna Referred To Contact Neurology Diagnoses Neurofibromatosis (HCC) Migraine without aura and without status migrainosus, not intractable Procedures CONSULT TO NEUROLOGY OFFICE/OUTPATIENT NEW HIGH MDM 60-74 MINUTES Reyna Hebert PA-C [address] [place] [address] Referral ID Status Reason Start Date Expiration Date Visits Requested Visits Authorized [id number] Authorized PCP Requested Referral 06/15/2023 06/14/2024 1 1 Summary Purpose Family History No Family History Records Found Advance Directives No Advanced Directives Records Found Additional Source Comments Source Comments (unrecognize d section and content) In the event this informatio n is protected by the Federal Confidentiality of Alcohol and Drug Abuse Patient Records regulations: The Federal rules restrict any use of the information to criminally investigate or prosecute any alcohol or drug abuse patient.[facility] the event this information is protected by the Federal Confidentiality of Alcohol and Drug Abuse Patient Records regulations: The Federal rules restrict any use of the information to criminally investigate or prosecute any alcohol or drug abuse patient.[facility] the event this information is protected by the Federal Confidentiality of Alcohol and Drug Abuse Patient Records regulations: The Federal rules restrict any use of the information to criminally investigate or prosecute any alcohol or drug abuse patient.[facility] the event this information is protected by the Federal Confidentiality of Alcohol and Drug Abuse Patient Records regulations: The Federal rules restrict any use of the information to criminally investigate or prosecute any alcohol or drug abuse patient.[facility] the event this information is protected by the Federal Confidentiality of Alcohol and Drug Abuse Patient Records regulations: The Federal rules restrict any use of the information to criminally investigate or prosecute any alcohol or drug abuse patient.[facility] the event this information is protected by the Federal Confidentiality of Alcohol and Drug Abuse Patient Records regulations: The Federal rules restrict any use of the information to criminally investigate or prosecute any alcohol or drug abuse patient.[facility] the event this information is protected by the Federal Confidentiality of Alcohol and Drug Abuse Patient Records regulations: The Federal rules restrict any use of the information to criminally investigate or prosecute any alcohol or drug abuse patient.[facility] Reason for Visit (unrecogniz ed section and content) Reason Comments ER F/U Reason Comments Yearly Exam Reason Comments Orders MRI Reason Comments Results MRI Care Teams (unrecognized sec tion and content) Commercial Construction Superintendent Relationship Specialty Start Date End Date Mercedes Zaman MD [address] [place], [place] [id number] PCP - General Family Practice 09/11/15 Commercial Construction Superintendent Relationship Specialty Start Date End Date Mercedes Zaman MD [address] [place], [place] [id number] PCP - General Family Medicine 09/11/15 Commercial Construction Superintendent Relationship Specialty Start Date End Date Mercedes Zaman MD [address] [place], [place] [id number] PCP - General Family Medicine 09/11/15 Commercial Construction Superintendent Relationship Specialty Start Date End Date Mercedes Zaman MD [address] [place], [place] [id number] PCP - General Family Medicine 09/11/15 Commercial Construction Superintendent Relationship Specialty Start Date End Date Mercedes Zaman MD [address] [place], [place] [address] [phone] PCP - General Family Medicine 09/11/15 Commercial Construction Superintendent Relationship Specialty Start Date End Date Mercedes Zaman MD [address] [place], [place] [address] [phone] - General Family Medicine 09/11/15 (unrecognized sect ion and content) No Status Records Found INFORMATION SOURCE (unrecogn ized section and content) FOR RECORDS PERTAINING TO PATIENTS WHO ARE OR HAVE BEEN ENROLLED IN A CHEMICAL DEPENDENCY/SUBSTANCEABUSE PROGRAM, SOME INFORMATION MAY BE OMITTED. This clinical summary was aggregated from multiple sources. Caution should be exercised in using it in the provision of clinical care. This summary normalizes information from multiple sources, and as a consequence, information in this document may materially change the coding, format and clinical context of patient data. In addition, data may be omitted in some cases. CLINICAL DECISIONS SHOULD BE BASED ON THE PRIMARY CLINICAL RECORDS. [facility]. provides no warranty or guarantee of the accuracy or completeness of information in this document.
[2024-01-10 13:23] LABS: Anion Gap 8 (5-15); BUN 14 mg/dL (7-18); BUN/Creat Ratio 16.3 RATIO (10-20); Calcium,Total 9.1 mg/dL (8.5-10.1); Chloride 106 mmol/L (98-107); Creatinine, Serum 0.86 mg/dL (0.70-1.30); EST Glomerular Filtration Rate 101 mL/min (>60); Est Glom Filt Rate - Afr Amer 123 mL/min (>60); Glucose 112 mg/dL (74-106); Potassium 3.9 mmol/L (3.5-5.1); Sodium Level 141 mmol/L (136-145)
== END 2024-01-10 14:12 | disposition home or self-care (01) ==
PROVIDERS: Emergency Provider Emergency Medicine; PCP Family Medicine; Visit Provider Emergency Medicine
DX: R42 Dizziness and giddiness (principal); J45.909 Unspecified asthma, uncomplicated
CPT/HCPCS: 80048; 85025; 99283; A4216

== ENCOUNTER 2024-01-11 17:46 | Emergency (ER) | payer MEDICARE, MEDICAID, SELFPAY ==
[2024-01-11 17:47] VITALS: BP 146/86; PULSE 82; RESP 16; TEMP 36.4; O2SAT 100; BMI 22.4
--- NOTE | 2024-01-11 18:06 | EX.ED.DYSGE1 ---
HPI <MOSES Mckenna - Last Filed: 01/11/24 21:06> History of Present Illness Chief Complaint: Dizziness Narrative Narrative: Patient presenting today with dizziness that he has had over the past 2 weeks that has worsened over the past few days. His dad reports that he did not bring up this dizziness to him until just a few days ago. He was seen in the emergency department yesterday and had lab work obtained that was unremarkable and was discharged home. He has recently had an MRI of his brain within the past 6 months. He describes the dizziness as a room spinning sensation that is worse with certain movements. He does not experience this at rest. He reports that after being discharged home yesterday he felt like his symptoms had worsened and wanted to come back in for evaluation. PMH includes intellectual disability and neurofibromatosis. PFSH <MOSES Mckenna - Last Filed: 01/11/24 21:06> PFSH Medical History Asthma MRDD Neurofibromatosis Home Medications albuterol sulfate 90 mcg/actuation aerosol inhaler (Ventolin HFA) 1 - 2 puff inhalation Q4H PRN PRN Wheezing 06/21/14 [History Last Taken Unknown] albuterol sulfate 2.5 mg/3 mL (0.083 %) solution for nebulization 2.5 mg inhalation Q6H PRN PRN Sob &/Or Wheezing 10/19/18 [History Last Taken Unknown] fluticasone propionate 44 mcg/actuation HFA aerosol inhaler (Flovent HFA) 2 puff inhalation BID 10/19/18 [History Last Taken Unknown] fluticasone propionate 50 mcg/actuation nasal spray,suspension 2 spray DAILY 10/19/18 [History Last Taken Unknown] cetirizine 10 mg capsule (Zyrtec) 10 mg PO DAILY allergies 10/20/18 [History Last Taken 10/19/18] meclizine 25 mg tablet 25 mg PO 4X/DAY PRN PRN Dizziness #20 tabs 01/11/24 [Rx Last Taken Unknown] Allergy/AdvReac Type Severity Reaction Status Date / Time No Known Allergies Allergy Verified 10/16/23 11:28 Social History Smoking Status: Never smoker ROS <MOSES Mckenna - Last Filed: 01/11/24 21:06> ROS ED Constitutional Constitutional ED: Denies chills or fever(s) Eyes Eyes: Denies change in vision Cardiovascular Cardiovascular: Denies chest pain Respiratory/Chest Respiratory/Chest: Denies cough or dyspnea Gastrointestinal Gastrointestinal: Denies abdominal pain, nausea or vomiting Genitourinary Genitourinary ED: Denies dysuria, hematuria or urinary urgency Musculoskeletal Musculoskeletal: Denies arthralgias or myalgias Integumentary Denies rash Neurologic Neurologic: Denies weakness EXAM <MOSES Mckenna - Last Filed: 01/11/24 21:06> Physical Exam Const Vital Signs: 01/11/24 17:47 Temperature 97.6 F L Temperature Source Temporal Pulse Rate 82 Respiratory Rate 16 Blood Pressure 146/86 H Blood Pressure Mean 106 Pulse Ox 100 Oxygen Delivery Method Room Air Positive well nourished, well developed and no apparent distress General Appearance ED: well developed HEENT Reports normocephalic and head/scalp atraumatic Mouth ED: Yes moist mucous membranes normal Eyes PERRL and EOMs intact bilaterally Neck full ROM and supple Chest Wall inspection of chest normal Resp normal respiratory effort and clear to auscultation bilaterally Cardio regular rate and regular rhythm GI soft to palpation, non-tender, non-distended and no masses Back/Spine normal ROM and normal to inspection Extremity normal to inspection and full ROM Neuro oriented x3, CN's II-XII intact bilaterally, moves all extremities, no focal motor deficits and no sensory deficits noted Sensorium / Orientation: awake and alert Motor Exam: strength 5/5 throughout Psych mental status grossly normal and thought process normal Skin no rashes or lesions noted and no wounds <Dr. Gurpreet Keith MD - Last Filed: 01/11/24 19:07> Physical Exam Const Vital Signs: 01/11/24 17:47 Temperature 97.6 F L Temperature Source Temporal Pulse Rate 82 Respiratory Rate 16 Blood Pressure 146/86 H Blood Pressure Mean 106 Pulse Ox 100 Oxygen Delivery Method Room Air MDM <MOSES Mckenna - Last Filed: 01/11/24 21:06> MDM MDM Narrative Medical decision making narrative: Patient reporting room spinning sensation with certain movements. I did do a [place] and he reported feeling symptoms on the left side, although no nystagmus was seen. He is well-appearing and in no acute distress. He is not ataxic. Neurological exam is normal. He was given meclizine and on reexamination reported improvement of his symptoms. He will be given an ENT referral and a prescription for meclizine. Dad reports that he is seeing his PCP later this week, he will have close follow-up. He will be discharged home in stable condition and dad and patient are comfortable with plan. I have personally performed a face to face assessment of the patient and have reviewed the YARED Note. I performed a substantive portion of the visit including all aspects of the following. My pavon findings include: History: Patient's been having intermittent dizzy episodes for 2 or more weeks. Family states he has had these before although he did not recall. He is also had syncope in the past but he is not having that now. He states just at certain times or if he moves a certain way he will get dizzy. He has not fallen. No headache. No weakness. He is actually reading on an iPad right now with no difficulties. He was seen yesterday had extensive workup. I also reviewed prior chart he had an MRI of his brain back in August. Exam: Patient awake alert no acute distress. I am not able to reproduce the symptoms right now. Even turning left and right I was not to get symptoms. No nystagmus. He is very coordinated. He is stable with his gait. Medical Decision Making: We will try meclizine to see if this helps and recheck him. Patient states he gets a spinning sensation with certain motions. <Dr. Gurpreet Keith MD - Last Filed: 01/11/24 19:07> [facility] Narrative Medical decision making narrative: I have personally performed a face to face assessment of the patient and have reviewed the YARED Note. I performed a substantive portion of the visit including all aspects of the following. My pavon findings include: History: Patient's been having intermittent dizzy episodes for 2 or more weeks. Family states he has had these before although he did not recall. He is also had syncope in the past but he is not having that now. He states just at certain times or if he moves a certain way he will get dizzy. He has not fallen. No headache. No weakness. He is actually reading on an iPad right now with no difficulties. He was seen yesterday had extensive workup. I also reviewed prior chart he had an MRI of his brain back in August. Exam: Patient awake alert no acute distress. I am not able to reproduce the symptoms right now. Even turning left and right I was not to get symptoms. No nystagmus. He is very coordinated. He is stable with his gait. Medical Decision Making: We will try meclizine to see if this helps and recheck him. Patient states he gets a spinning sensation with certain motions. Discharge Plan Triage Chief Complaint: Dizziness ED Midlevel Provider: Julia Díaz ED Provider: Gurpreet Keith Dx/Rx/DC Orders Clinical Impression: Dizziness Instructions: ED Vertigo, Unspecified Prescriptions: New meclizine 25 mg tablet 25 mg PO 4X/DAY PRN PRN (Reason: Dizziness) Qty: 20 0RF No Action albuterol sulfate [Ventolin HFA] 1 INHALER inhaler 1 - 2 puff inhalation Q4H PRN PRN (Reason: Wheezing) albuterol sulfate 2.5 MG/3 ML solution for nebulization 2.5 mg inhalation Q6H PRN PRN (Reason: Sob &/Or Wheezing) fluticasone propionate [Flovent HFA] 1 INHALER inhaler 2 puff inhalation BID fluticasone propionate 1 SPRAY spray,suspension 2 spray NASAL DAILY Zyrtec 10 MG capsule 10 mg PO DAILY Primary Care Provider: Nicholas Collins Referrals: Nicholas Collins MD [Primary Care Provider] - 3-5 Days Richard Kim MD [Med Staff - Active Staff] - 1 Week Activity Restrictions/Additional Instructions: Follow-up with ENT. Return for any worsening of your symptoms. Disposition Disposition: Home, Self Care Discharge Date/Time: 01/11/24 19:48
[2024-01-11] MEDS: Meclizine HCl 25 MG Tablet PO (18:15)
== END 2024-01-11 19:48 | disposition home or self-care (01) ==
PROVIDERS: Emergency Provider Emergency Medicine; PCP Family Medicine; Visit Provider Emergency Medicine
DX: R42 Dizziness and giddiness (principal); Q85.00 Neurofibromatosis, unspecified; F79 Unspecified intellectual disabilities; J45.909 Unspecified asthma, uncomplicated; Z79.899 Other long term (current) drug therapy
CPT/HCPCS: 99282

== ENCOUNTER 2025-01-09 11:37 | Emergency (ER) | payer MEDICARE, MEDICAID, SELFPAY ==
[2025-01-09 11:37] VITALS: BP 149/87; PULSE 91; RESP 18; TEMP 37.1; O2SAT 98; BMI 22.8
--- NOTE | 2025-01-09 12:05 | EX.ED.GENINJ ---
HPI History of Present Illness Chief Complaint: Laceration Narrative Narrative: 49-year-old male presenting with left index finger laceration. Patient accidentally grabbed a knife out of the flores with his left hand. He is left-handed. He sustained a laceration to the distal left index finger. No other injuries. He is not on anticoagulants. Last tetanus is unknown. Tetanus Immunization: Unknown Recent Illness/Hospitalization: No [facility] Medical History Asthma Neurofibromatosis MRDD Home Medications ?Medication ?Instructions ?Recorded ?Last Taken ?Type albuterol sulfate 90 mcg/actuation 1 - 2 puff inhalation Q4H PRN PRN 06/21/14 Unknown History aerosol inhaler (Ventolin HFA) Wheezing albuterol sulfate 2.5 mg/3 mL 2.5 mg inhalation Q6H PRN PRN Sob 10/19/18 Unknown History (0.083 %) solution for nebulization &/Or Wheezing fluticasone propionate 44 2 puff inhalation BID 10/19/18 Unknown History mcg/actuation HFA aerosol inhaler (Flovent HFA) fluticasone propionate 50 2 spray DAILY 10/19/18 Unknown History mcg/actuation nasal spray,suspension cetirizine 10 mg capsule (Zyrtec) 10 mg PO DAILY allergies 10/20/18 10/19/18 History meclizine 25 mg tablet 25 mg PO 4X/DAY PRN PRN Dizziness 01/11/24 Unknown Rx #20 tabs Allergy/AdvReac Type Severity Reaction Status Date / Time No Known Allergies Allergy Verified 01/09/25 11:37 Social History Smoking Status: Never smoker ROS ROS ED Constitutional Constitutional ED: Denies fever(s) Eyes Eyes: Denies change in vision ENT ENT ED: Denies rhinorrhea or sore throat Cardiovascular Cardiovascular: Denies chest pain or palpitations Respiratory/Chest Respiratory/Chest: Denies cough or dyspnea Gastrointestinal Gastrointestinal: Denies abdominal pain, diarrhea, nausea or vomiting Genitourinary Genitourinary ED: Denies dysuria Musculoskeletal Musculoskeletal: Reports other Details: Left index finger laceration ; Denies myalgias Integumentary Denies rash Neurologic Neurologic: Denies headache(s) Psychiatric Psychiatric: Denies suicidal thoughts EXAM Physical Exam Const Vital Signs: 01/09/25 11:37 Temperature 98.7 F Temperature Source Oral Pulse Rate 91 Respiratory Rate 18 Blood Pressure 149/87 H Blood Pressure Mean 107 Pulse Ox 98 Oxygen Delivery Method Room Air Positive well nourished and well developed General Appearance ED: well developed HEENT Reports normocephalic and head/scalp atraumatic Eyes PERRL and EOMs intact bilaterally Neck supple General: Negative for tenderness Chest Wall inspection of chest normal Resp normal respiratory effort and clear to auscultation bilaterally Cardio regular rate and regular rhythm Extremity Extremity Narrative: 1 cm laceration distal left index finger pad. No nail involvement. Normal cap refill. Tendon function normal. Active full range of motion. Normal sensation. General Extremety ED: Yes other findings General Extremity: other findings Neuro oriented x3 Sensorium / Orientation: alert Psych mental status grossly normal MDM MDM MDM Narrative Medical decision making narrative: Patient was given tetanus immunization. Wound was irrigated. Digital block was performed. 3, 6-0 simple sutures were placed. Patient tolerated this well. Advised wound care instructions. Advised to follow-up with primary care physician. History & Record Review Discussion w/independent historian: Patient and Family Discharge Plan Triage Chief Complaint: Laceration ED Provider: Maggie Pennington Dx/Rx/DC Orders Clinical Impression: Laceration of left index finger Instructions: ED Laceration Extremity Prescriptions: No Action albuterol sulfate [Ventolin HFA] 1 INHALER inhaler 1 - 2 puff inhalation Q4H PRN PRN (Reason: Wheezing) albuterol sulfate 2.5 MG/3 ML solution for nebulization 2.5 mg inhalation Q6H PRN PRN (Reason: Sob &/Or Wheezing) fluticasone propionate [Flovent HFA] 1 INHALER inhaler 2 puff inhalation BID fluticasone propionate 1 SPRAY spray,suspension 2 spray NASAL DAILY Zyrtec 10 MG capsule 10 mg PO DAILY meclizine 25 mg tablet 25 mg PO 4X/DAY PRN PRN (Reason: Dizziness) Qty: 20 0RF Primary Care Provider: Nicholas Collins Referrals: Nicholas Collins MD [Primary Care Provider] - Print Language: Romansh Disposition Disposition: Home, Self Care
[2025-01-09] MEDS: Diphth,Pertuss(Acell),Tet Vac 0.5 ML Vial IM (12:18)
[2025-01-09] MEDS: Lidocaine 1% (20 ml mdv) 20 ML Vial INFILT (12:19)
== END 2025-01-09 13:05 | disposition home or self-care (01) ==
PROVIDERS: Emergency Provider Emergency Medicine; PCP Family Medicine; Visit Provider Emergency Medicine
DX: S61.211A Laceration without foreign body of left index finger without damage to nail, initial encounter (principal); W26.0XXA Contact with knife, initial encounter; J45.909 Unspecified asthma, uncomplicated; Z23 Encounter for immunization
CPT/HCPCS: 12001; 90471; 90715; 99282